=== PATIENT | male | born 1970 | race African-American/Black ===

== ENCOUNTER 2016-03-16 09:30 | Day surgery (SDC) ==
[~2016-03-16 09:30] MED LIST: SENSORCAINE-MPF 0.5%/EPI 1:200,000 ONE
[2016-03-16] MEDS ORDERED: TYLENOL ONE (09:36)
[2016-03-16] MEDS ORDERED: BENADRYL ONE (09:36)
[2016-03-16] MEDS ORDERED: NS 250 ML ONE (09:36)
[2016-03-16 12:54] VITALS: BP 113/77
== END 2016-03-16 13:00 | disposition home or self-care (01) ==
LOC: OPS 09:30
PROVIDERS: ATTEND Internal Medicine Hematology & Oncology
DX: D64.81 Anemia due to antineoplastic chemotherapy (principal); T45.1X5A Adverse effect of antineoplastic and immunosuppressive drugs, initial encounter; C34.11 Malignant neoplasm of upper lobe, right bronchus or lung; C79.31 Secondary malignant neoplasm of brain; I87.1 Compression of vein; F17.200 Nicotine dependence, unspecified, uncomplicated; C78.1 Secondary malignant neoplasm of mediastinum; R63.4 Abnormal weight loss; R52 Pain, unspecified; R11.2 Nausea with vomiting, unspecified; Z41.8 Encounter for other procedures for purposes other than remedying health state; R13.10 Dysphagia, unspecified; R68.83 Chills (without fever); R42 Dizziness and giddiness; R59.0 Localized enlarged lymph nodes; E53.8 Deficiency of other specified B group vitamins; Z79.899 Other long term (current) drug therapy
CPT/HCPCS: 36430; 86850; 86900; 86901; 86920; J7050; P9016; S0020

== ENCOUNTER 2016-05-24 10:55 | Day surgery (SDC) ==
[2016-05-24 12:41] LABS: INR 1.03; PROTIME 10.5 Seconds (9.2-11.7)
[2016-05-24] MEDS ORDERED: NS 250 ML ONE ×2 (12:44→13:29)
--- NOTE | 2016-05-24 14:45 | Diag Imaging Result Document ---
PROCEDURE NAME: CHEST-PORTABLE - 05/24/2016 SINGLE FRONTAL RADIOGRAPH OF THE CHEST: COMPARISON: 10/19/2015. FINDINGS: There is a stable calcified granuloma at the left lung base. There is linear scarring versus atelectasis in the right mid to upper lung zone. There is a newly placed left PICC line. The tip of the PICC line is to the left of midline. It is probably in the left brachiocephalic vein. Advancement is recommended for a more optimal position. Cardiac silhouette is grossly unremarkable. IMPRESSION: 1. Newly placed left PICC line tip projecting over the left side of the chest and probably in the left brachiocephalic vein. 2. Linear scarring versus atelectasis in the right upper lung zone.
== END 2016-05-24 14:50 | disposition home or self-care (01) ==
LOC: OPS 10:55
PROVIDERS: ATTEND Surgery
DX: C34.90 Malignant neoplasm of unspecified part of unspecified bronchus or lung (principal)
CPT/HCPCS: 36569; 71010; 85610; J7050

== ENCOUNTER 2016-05-27 09:17 | Emergency (ER) ==
[2016-05-27] MEDS ORDERED: XYLOCAINE-MPF 1% 5 ML ONE (10:38)
--- NOTE | 2016-05-27 10:44 | PROVIDER DOCUMENTATION ---
HPI-Rash/Wound/ReCheck - General Source: patient - History of Present Illness-Dermatology Location: reports: none Quality: reports: none Onset/Duration: reports: 4 days ago Timing: reports: still present Identifiable cause?: No Similar Symptoms Previously?: No Recently seen or treated by another doctor?: No <Nella Aceves - Last Filed: 05/27/16 10:57> <Trent Machuca - Last Filed: 05/27/16 10:59> - General Chief Complaint: Post Op Complaint Stated Complaint: PICC LINE BLEEDING Time Seen by Provider: 05/27/16 09:50 Allergies/Adverse Reactions: Allergies Allergy/AdvReac Type Severity Reaction Status Date / Time No Known Allergies Allergy Verified 05/03/14 12:23 Home Medications: Home Medication List Medication Instructions Recorded Confirmed Last Taken Type Hydrocodone/APAP 10 mg/325 mg 1 each PO Q4H PRN PRN #60 tablet 10/20/1512/08/15 Rx [[place]-10] Alprazolam [Xanax] 1 mg PO BID PRN 11/17/15 03/16/16 12/08/15 History Dexamethasone [Decadron] 4 mg PO BID 11/17/15 03/16/16 12/07/15 History - History of Present Illness-Dermatology Nature of Presenting Problem: Pt is a 45 yom who came to the ED with a cc of his pick line bleeding. Pt reports he had a new pick line placed in his left arm Saturday and since then it has been bleeding. Pt reports he also wants the old pick line removed. ( Nella Aceves) Review of Systems - Adult - REVIEW OF SYSTEMS - ADULT Constitutional: denies: chills, fever Eyes: denies: decreased vision, blurred vision Gastrointestinal: denies: diarrhea, nausea, vomiting Integumentary: reports: other (pick line in left arm bleeding). denies: itching , nail changes <Nella Aceves - Last Filed: 05/27/16 10:57> Past History - Adult - PAST MEDICAL HISTORY-ADULT Review of Records: reports: Old Records Reviewed, Nursing Assessment Review Major Childhood Illnesses: reports: denies history Cardiovascular: reports: denies history Respiratory: reports: cancer (lung) Gastrointestinal: reports: denies history Obstetrical/Gynecological: reports: denies history Genitourinary: reports: denies history Musculoskeletal: reports: denies history Neurological: reports: cancer/tumor Psychiatric: reports: denies history Endocrine/Immune: reports: denies history Other Conditions: reports: skin disorder ( cystic acne in the past), other - PRIOR SURGERIES/PROCEDURES Surgical/Procedure History: reports: none - IMMUNIZATION STATUS Childhood Immunizations: UTD Flu Vaccine: NUTD - FAMILY HISTORY Family History: reviewed, not pertinent <Nella Aceves - Last Filed: 05/27/16 10:57> Physical Exam-General - PHYSICAL EXAM-ADULT Initial Vital Signs Reviewed: Yes - CONSTITUTIONAL General Appearance: appears well, no apparent distress - EYES Eyes: PERRL/EOMI, pink conjunctivae - HEAD, EARS, NOSE, MOUTH & THROAT HENMT: normocephalic/atraumatic - NECK Neck: non-tender - RESPIRATORY Respiratory: chest non-tender, lungs clear - GASTROINTESTINAL (ABDOMEN) Abdominal Exam: normal bowel sounds, non tender - MUSCULOSKELETAL Back Exam: normal inspection Extremity: normal range of motion, other (left arm pick arm bleeding) - SKIN Integumentary: normal color, normal turgor - NEUROLOGIC Neurologic: grossly normal - PSYCHIATRIC Psych/Mental Status: normal mood/affect, normal thought content, normal thought process, oriented x 3 <Nella Aceves - Last Filed: 05/27/16 10:57> Progress <Nella Aceves - Last Filed: 05/27/16 10:57> <Trent Machuca - Last Filed: 05/27/16 10:59> - PLAN OF CARE/RESULTS Progress/Plan/Lab Results: Vital Signs - 24 hr 05/27/16 09:28 Temperature 97.5 F L Pulse Rate 112 H Respiratory 18 Rate Blood Pressure 109/78 O2 Sat by Pulse 98 Oximetry Orders Category Date Time Status Lidocaine 1% Pf [Xylocaine-Mpf 1%] 5 ml Med 05/27/16 10:38 Discontinued .ROUTE As Directed (Nella Aceves) Procedures - LACERATION/WOUND REPAIR/FB Left Upper Arm Wound Location: Other: pick line Wound Explored/Foreign Body: clean Irrigated with Saline?: No Anesthetic: 1%, Lidocaine/Xylocaine Wound Repaired with: Sutures Suture Size/Type: 3.0, Nylon Number of Sutures: 1 <Nella Aceves - Last Filed: 05/27/16 10:57> Departure - Departure Time of Disposition Order: 10:57 Certified Medical Emergency: Emergent <Nella Aceves - Last Filed: 05/27/16 10:57> - Departure Time of Disposition Order: 10:59 Certified Medical Emergency: Emergent <Trent Machuca - Last Filed: 05/27/16 10:59> - Departure DIAGNOSIS: Post-op bleeding Qualifiers: Surgical complication system/body Area: skin Procedure type: dermatologic Qualified Code(s): L76.21 - Postprocedural hemorrhage of skin and subcutaneous tissue following a dermatologic procedure Disposition: HOME 01 Condition: Stable Additional Instructions: ED Follow Up Instructions: You have been treated by a care provider in the Emergency Department. These instructions are being provided to you so you can have an understanding of how to care for yourself upon discharge. Upon discharge from the Emergency Department, you are responsible for making arrangements for follow-up care by a physician of your choice. Take all prescribed medications as directed. Return to the Emergency Department immediately for any new or worsening symptoms. You may call the Physician Referral phone number at [phone] to obtain a list of Physicians who are taking new patients. Referrals: None,PCP [Primary Care Provider] - Attestation - Scribe Verification/Attestation Scribe:: Nella Aceves Acting as Scribe for:: Trent Machuca Scribe documention review:: This chart was documented by a scribe and accurately reflects the service the provider performed and the decisions made by the provider. <Nella Aceves - Last Filed: 05/27/16 10:57> Physician Attestation
[2016-05-27 12:18] VITALS: BP 123/87
== END 2016-05-27 12:08 | disposition home or self-care (01) ==
LOC: ED 09:17
DX: L76.21 Postprocedural hemorrhage of skin and subcutaneous tissue following a dermatologic procedure (principal); Z79.899 Other long term (current) drug therapy; Z85.118 Personal history of other malignant neoplasm of bronchus and lung
CPT/HCPCS: 99282

== ENCOUNTER 2018-10-27 06:50 | Inpatient (IN) ==
[2018-10-27 07:59] LABS: INR 1.12; PROTIME 14.6 Seconds (11.0-16.0)
[2018-10-27 08:00] LABS: PTT 33.4 Seconds (22.3-41.8)
--- NOTE | 2018-10-27 09:37 | Diag Imaging Result Doc PS360 ---
EXAM: CHEST-2 VIEWS INDICATION: POST XRAY THORACENTESIS TECHNIQUE: 2 views COMPARISON: 10/23/2018 FINDINGS: The large pleural effusion on the right is significantly smaller status post thoracentesis. However, there has been development of a right-sided pneumothorax. It occupies about 15-20% of the right hemithorax. Despite the pneumothorax, the right lung is better aerated than the previous study due to the marked reduction in pleural fluid. The left apical lung mass is approximately stable. Cardiac silhouette is essentially stable. IMPRESSION: Right side hydropneumothorax status post thoracentesis as described. The patient will be monitored in-house and a repeat chest radiograph will be performed in four hours. Electronically signed by Shane Larios 10/27/2018 9:35 AM
[2018-10-27 10:07] LABS: BODY FLUID SOURCE PLEURAL FLUID
--- NOTE | 2018-10-27 10:07 | Diag Imaging Result Doc PS360 ---
EXAM: US THORACENTESIS W/IMAGE GUIDE INDICATION: right pleural effusion TECHNIQUE: COMPARISON: 04/21/2018 FINDINGS: Risks, benefits, and alternatives were discussed with the patient and informed consent was obtained. Patient was prepped and draped in sterile fashion and local anesthesia was achieved with 1% lidocaine solution. Using ultrasound guidance, a large bore catheter was inserted into the right pleural space and 1500 mL of straw-colored serous fluid was aspirated and sent for laboratory analysis. The catheter was withdrawn intact and hemostasis was achieved. A postprocedural chest radiograph showed a pneumothorax on the right occupying about 15-20% of the right hemithorax. The patient will be monitored in-house and a repeat chest radiograph will be performed in four hours to reevaluate. IMPRESSION: Technically successful ultrasound-guided right thoracentesis complicated by a right side pneumothorax. Electronically signed by Shane Larios 10/27/2018 10:05 AM
[2018-10-27 11:36] LABS: GLUCOSE BODY FLUID 66 mg/dL; LDH BODY FLUID 239 U/L; TOTAL PROT BODY FLUID 4.8 g/dL
--- NOTE | 2018-10-27 13:41 | Diag Imaging Result Doc PS360 ---
EXAM: CHEST-2 VIEWS INDICATION: 4 hours post thoracentesis TECHNIQUE: 2 views COMPARISON: 10/27/2018 FINDINGS: The post thoracentesis hydropneumothorax on the right has not changed appreciably since the previous study. It still occupies approximately 15-20% of the right hemithorax. However, there has been development of groundglass consolidation involving the right lower lobe and right middle lobe. This may be developing pulmonary edema. The chest is stable, otherwise. IMPRESSION: Approximately stable right-sided hydropneumothorax but development of consolidation at the right lower lung zone, which is worrisome for developing pulmonary edema. Electronically signed by Shane Larios 10/27/2018 1:38 PM
[2018-10-27] MEDS ORDERED: ZOFRAN IV PRN (14:29)
[2018-10-27] MEDS ORDERED: NORCO-7.5 PO PRN (14:29)
[2018-10-27] MEDS ORDERED: TYLENOL PO PRN (14:29)
[2018-10-27] MEDS ORDERED: XANAX PO PRN (14:36)
--- NOTE | 2018-10-27 14:57 | EKG Report ---
Test Performed on : 10/27/2018 2:43:03 PM Test Reason : chest pain Blood Pressure : / mmHG Vent. Rate : 107 BPM Atrial Rate : 107 BPM P-R Int : 138 ms QRS Dur : 082 ms QT Int : 336 ms P-R-T Axes : 085 -38 053 degrees QTc Int : 448 ms Sinus tachycardia. Left axis deviation Nonspecific T wave abnormality Abnormal ECG When compared with ECG of 07-JUN-2018 19:52, Nonspecific T wave abnormality no longer evident in Inferior leads Nonspecific T wave abnormality has replaced inverted T waves in Lateral leads Confirmed by Yoseph CHOUDHURY, MBeto Hicks ([id number]) on 10/28/2018 12:07:08 PM
[2018-10-27 15:30] LABS: BASO# 0.04 X1000 (0.0-0.2); BASO% 0.3 % (0.0-0.8); EOS# 0.03 X1000 (0.0-0.7); EOS% 0.2 % (0.0-10.0); HEMATOCRIT 47.7 % (42.0-52.0); HEMOGLOBIN 16.8 g/dL (14.0-18.0); IMM GRAN# 0.03 X1000 (0.0-0.04); IMM GRAN% 0.2 % (0.0-0.5); LYMPH# 1.42 X1000 (1.2-3.4); LYMPH% 9.2 % (20.5-51.1); MCH 32.9 PG (27-31); MCHC 35.2 g/dL (33-37); MCV 93.3 FL (81-99); MONO# 1.36 X1000 (0.11-0.59); MONO% 8.8 % (1.7-9.3); MPV 9.7 FL (7.4-10.4); NEUT% 81.3 % (42.2-75.2); PLT 363 X1000 (130-400); RBC 5.11 XMIL (4.7-6.1); RDW 15.9 % (11.5-14.5); WBC 15.48 X1000 (4.8-10.8)
--- NOTE | 2018-10-27 15:38 | HISTORY AND PHYSICAL ---
PRIMARY CARE PROVIDER: Piyush Rico MD PRIMARY ONCOLOGIST: Segundo Macias MD CHIEF COMPLAINT: Pneumothorax. REASON FOR ADMISSION: Pneumothorax. HISTORY OF PRESENT ILLNESS: Mr. Crispin Ba is a 48-year-old, male with a medical history of COPD, stage IV lung cancer that has metastasized to the brain. He is here today for diagnostic therapeutic thoracentesis on the right lung due to pleural effusion. Postprocedure complications includes pneumothorax so he is going to be admitted for [address] Macias's request along with a CT chest with contrast in the morning. Tachycardia but otherwise other vitals are stable. We will consult Dr. Rodas to evaluate for risk of needing a chest tube. PAST MEDICAL HISTORY: 1. COPD. 2. Stage IV lung cancer with metastasis to the brain diagnosed in 2016. He has been receiving radiation and chemotherapy. Apparently, he is on Opdivo. SURGICAL HISTORY: 1. Left lower back abscess excision and drainage. 2. Right lung tumor biopsy. 3. Right chest tube due to pneumothorax. SOCIAL HISTORY: Used to be a 1 to 2 pack per day smoker. Now he is a half pack per day smoker since age of 13. Used to smoke marijuana daily but now it is just 3 days a week. He used to drink half case of beer per day but now he is down to 3 beers about twice a week. He does not work any more. 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 He still has his girlfriend. FAMILY HISTORY: Mother had diabetes. Father is unknown. ALLERGIES: No known drug allergies. HOME MEDICATIONS: 1. Xanax 1 mg p.o. twice a day p.r.n. 2. [place] 10 mg 1 tab p.o. every 4 hours p.r.n. 3. I believe he is on Opdivo chemotherapy medication. REVIEW OF SYSTEMS: Fourteen point review of systems are complete and all were negative except for those mentioned above in the HPI. He states he has a chronic cough. Always feels like he has chronic congestion. Yellow to clear phlegm, it was yellow when he coughed it up at the bedside but denies chest pain, fever. PHYSICAL EXAMINATION: VITAL SIGNS: Temperature 98 degrees, heart rate 112, respiratory rate 22, blood pressure 118/84, O2 saturation 94% on room air. GENERAL: Mr. Crispin Ba is a 48-year-old, male, who is in no acute distress. He is able to answer questions appropriately. HEENT: Atraumatic, normocephalic. Pupils equal, round, reactive to light. Extraocular movements intact. Mucous membranes are dry. NECK: Trachea midline. CARDIOVASCULAR: S1, S2. Tachycardic rate and rhythm. No rubs, gallops, murmurs. No lower extremity edema. +2 dorsalis and radial pulses. Negative JVD or carotid bruits. PULMONARY: Clear to auscultation. Bilateral breath sounds. Mildly decreased in the right base. No accessory muscle use or work of breathing noted. He is tolerating room air. GASTROINTESTINAL: Soft, nontender, nondistended. Positive bowel sounds x4. EXTREMITIES: Moves all extremities equally. Full range of motion. NEUROLOGIC: A and O x3. Follows commands. Sensory is intact. SKIN: Warm, dry, intact. LABORATORY DATA: INR 1.12, PTT is 33.4. Pleural fluid glucose 66. Fluid total protein 4.8, fluid LDH 239 right pleural fluid. All other imaging and EKG is pending. At 7:04 a.m. he had a ultrasound-guided right thoracentesis, it caused about 15 to 20 percent right pneumothorax. There were able to drain around 1500 mL of straw-colored serous fluid which cultures were sent. At 09:19, chest x-ray showed the right side hydropneumothorax status post thoracentesis. A repeat chest x-ray 4 hours later showed approximately stable right-sided pneumothorax but development of consolidation of the right lower lung zone. Worrisome for some pulmonary edema. ASSESSMENT AND PLAN: 1. Right pleural pneumothorax, hydropneumothorax developed post right thoracentesis. Dr. Rodas was consulted to evaluate for need of chest tube placement. He has had a have a chest tube on the right side in the past due to a pneumothorax. Oxygen, pain medications needed. Monitoring of O2 saturation. Per Dr. Macias's request, he is going to have a CT of the chest with contrast in the morning. 2. Chronic obstructive pulmonary disease. No exacerbation. We will get ABGs. He can have nebulizers q.6 hours. No need for steroids at this time. 3. Stage IV lung cancer with brain metastasis followed by Dr. Macias on Opdivo. We will consult Dr. Macias as he is actually the one that got in touch with us. 4. Tachycardia could be due to the fluid volume loss of 1500 mL. We will monitor him on telemetry. 5. Anxiety. He has p.r.n. Xanax. 6. Tobacco abuse. Cessation discussed. 7. Marijuana use. Aware. 8. Beer weekly, twice per week. Also aware. Dictated by MYESHA Jones for Miles Silva MD cc: MYESHA Jones MD Pt examined in conjucntion with jo ann win, pt developed hydropneumothorax after a therapeutic thorancentesis; surgery will be consulted, may require a thoracostomy; will continue o2; and follow closely; lungs diminished at right base, agree with plan as otherwise described above [place] MTDD
[2018-10-27 15:44] LABS: AGAP 11; ALBUMIN 3.7 g/dL (3.5-5.0); ALKALINE PHOSPHATASE 70 U/L (32-122); BUN 10 mg/dL (8-22); CHLORIDE 99 mmol/L (98-107); COSMO 270; CREATININE 0.9 mg/dL (0.7-1.2); ESTIMATED GFR > 60; GLUCOSE 77 mg/dL (70-104); GOT 12 U/L (10-34); GPT 7 U/L (10-44); MAGNESIUM 1.9 mg/dL (1.5-2.7); POTASSIUM 4.3 mmol/L (3.5-5.1); SODIUM 136 mmol/L (136-145); TCO2 26 mmol/L (25-35); TOTAL BILIRUBIN 0.65 mg/dL (0.20-1.00); TOTAL PROTEIN 7.3 g/dL (6.3-8.3)
[2018-10-27] MEDS: ATROVENT NEB INH SCH ×2 (15:45→22:10)
[2018-10-27] MEDS: XOPENEX NEB INH SCH ×2 (15:45→22:10)
[2018-10-27 16:30] LABS: ALLEN TEST YES; BLOOD TYPE ARTERIAL; METHB 1.1 % (0.0-1.5); MODALITY CANNULA; O2(CT) 22.1 mL/dL (15.0-23.0); O2HB 92.7 % (95.0-99.0); PCO2(98.6) 27 mmHg (35-45); PO2(98.6) 90 mmHg (60-100); SAMPLE BLOOD; SAO2 98.2 % (95.0-100.0); THB 16.9 g/dL (11.5-17.4); pH(98.6) 7.49 (7.35-7.45)
[2018-10-27 18:10] LABS: URINE SOURCE CLEAN CATCH
[2018-10-27 18:20] LABS: BILIRUBIN URINE NEGATIVE (NEGATIVE); BLOOD URINE NEGATIVE (NEGATIVE); COLOR YELLOW; GLUCOSE URINE NEGATIVE (NEGATIVE); KETONE URINE NEGATIVE (NEGATIVE); LEUKOCYTES URINE NEGATIVE (NEGATIVE); NITRITE URINE NEGATIVE (NEGATIVE); PROTEIN URINE NEGATIVE (NEGATIVE); SP GRAVITY URINE 1.015; TURBIDITY URINE CLEAR (CLEAR); UR EPITHELIAL CELLS <10 /HPF (<10); URINE BACTERIA NEGATIVE /HPF; URINE RBC <10 /HPF (<10); URINE WBC <10 /HPF (<10); UROBILINOGEN URINE NORMAL (NORMAL)
[2018-10-27] MEDS: PULMICORT INH SCH (19:02)
--- NOTE | 2018-10-27 19:08 | GENERAL SURGERY CONSULTATION ---
DATE: 10/27/2018 REQUESTING PHYSICIAN: Hospitalist Service. REASON FOR CONSULTATION: Concerning hydropneumothorax. HISTORY OF PRESENT ILLNESS: Patient is a 48-year-old male with a history of COPD, stage 4 lung cancer with metastasis to the brain, who has been getting therapeutic thoracenteses on the right side due to recurrent pleural effusion. He did have what appears to be a post procedural hydropneumothorax, which he has been admitted by the hospitalist for evaluation. He does have a CT scan ordered in the morning. He is without any kind of issue right now. He is without shortness of breath or chest pain. I was asked to weigh an opinion. PAST MEDICAL HISTORY: Includes 1. COPD. 2. Stage 4 lung cancer with metastatic disease to the brain, who is actively receiving chemoradiation. PAST SURGICAL HISTORY: Incision and drainage of left back abscess, right lung tumor biopsy, right chest tube due to pneumothorax. SOCIAL HISTORY: Former smoker. Three beers a day as far as alcohol intake. FAMILY HISTORY: Positive for diabetes. ALLERGIES: None. HOME MEDICATIONS: Reviewed. REVIEW OF SYSTEMS: A full 14 organ systems were reviewed and are negative except for those specified in the HPI. PHYSICAL EXAMINATION: Vital Signs: Patient is currently afebrile. His vital signs are stable. General: No acute distress. Alert and interactive male, looks the stated age. HEENT: Normocephalic, atraumatic. Pupils equal, round, reactive to light. Mucous membranes moist. Oropharynx benign. Neck: Supple. Trachea midline. Cardiovascular: Regular rate and rhythm. Lungs: Grossly clear. No increased labor of breathing. Abdomen: Soft. Nontender. Not distended. Extremities: Moves all extremities. Neurologic: Grossly intact. Skin: No signs of jaundice. Vascular: All extremities perfused. LABORATORY: White blood cell count is 15, hematocrit 47, platelet count 363,000. INR is 1.12. ABG reviewed. CMP reviewed. IMAGING: Chest x-ray reviewed and discussed with Dr. Hadley. ASSESSMENT AND PLAN: A 48-year-old gentleman with metastatic lung cancer, now with right hydropneumothorax. 1. Metastatic lung cancer. At this time he is continuing treatment per Dr. Macias. Will defer to him. 2. Chronic obstructive pulmonary disease. At this time will defer to the hospitalist. He does not seem to be in any distress. 3. Right hydropneumothorax. At this time, likely related to a line. He has had multiple drainages. At this point will hold off on any kind of chest tube placement until we get the CT scan. He might benefit from a PleurX catheter if he is having repeated drainage procedures, but will make further recommendations once we have the CT scan done. I appreciate the consult. cc: Shadi Rodas MD
[2018-10-28] MEDS ORDERED: NORCO-10 PO PRN (00:03)
[2018-10-28] MEDS ORDERED: NORCO-7.5 PO PRN (00:15)
[2018-10-28] MEDS: XOPENEX NEB INH SCH ×4 (03:49→22:45)
[2018-10-28] MEDS: ATROVENT NEB INH SCH ×4 (03:49→22:45)
[2018-10-28 06:04] LABS: BASO# 0.05 X1000 (0.0-0.2); BASO% 0.5 % (0.0-0.8); EOS# 0.15 X1000 (0.0-0.7); EOS% 1.5 % (0.0-10.0); HEMATOCRIT 45.4 % (42.0-52.0); HEMOGLOBIN 15.8 g/dL (14.0-18.0); IMM GRAN# 0.02 X1000 (0.0-0.04); IMM GRAN% 0.2 % (0.0-0.5); LYMPH# 1.57 X1000 (1.2-3.4); LYMPH% 15.3 % (20.5-51.1); MCH 32.6 PG (27-31); MCHC 34.8 g/dL (33-37); MCV 93.8 FL (81-99); MONO# 1.06 X1000 (0.11-0.59); MONO% 10.3 % (1.7-9.3); MPV 9.5 FL (7.4-10.4); NEUT# 7.41 X1000 (1.4-6.5); NEUT% 72.2 % (42.2-75.2); PLT 326 X1000 (130-400); RBC 4.84 XMIL (4.7-6.1); RDW 15.7 % (11.5-14.5); WBC 10.26 X1000 (4.8-10.8)
[2018-10-28 06:08] LABS: INR 1.11; PROTIME 14.4 Seconds (11.0-16.0)
[2018-10-28 06:09] LABS: PTT 34.8 Seconds (22.3-41.8)
--- NOTE | 2018-10-28 06:13 | GENERAL SURGERY PROGRESS NOTE ---
DATE: 10/28/2018 SUBJECTIVE: Patient seems to be doing okay. He is not having any issues breathing. OBJECTIVE: Vital Signs: Patient is currently afebrile. His vital signs are stable. General: No acute distress. HEENT: Normocephalic, atraumatic. Pupils equal, round, reactive to light. Mucous membranes moist. Oropharynx benign. Neck: Supple. Trachea midline. Cardiovascular: Regular rate and rhythm. Lungs: Grossly clear. No increased labored breathing. Abdomen: Soft, nontender, nondistended. Extremities: Moves all extremities. Neurologic: Grossly intact. Skin: No signs of jaundice. Vascular: All extremities are perfused. LABORATORY DATA: None this morning as of yet. ASSESSMENT AND PLAN: A 48-year-old gentleman with stage IV lung cancer with recurrent effusions and hydropneumothorax. 1. Metastatic lung cancer. At this time, continue treatment per Dr. Macias. 2. Chronic obstructive pulmonary disease but we will defer to the Hospitalist. 3. Right hydropneumothorax. At this time, we will follow up a CT scan of the chest. May need to do like a PleurX catheter if he needs repeat drainage. We will continue to follow. cc: Shadi Rodas MD
[2018-10-28 06:22] LABS: AGAP 8; ALBUMIN 3.4 g/dL (3.5-5.0); ALKALINE PHOSPHATASE 62 U/L (32-122); BUN 9 mg/dL (8-22); CALCIUM 8.8 mg/dL (8.8-10.2); CHLORIDE 102 mmol/L (98-107); COSMO 275; CREATININE 0.9 mg/dL (0.7-1.2); ESTIMATED GFR > 60; GLUCOSE 101 mg/dL (70-104); GOT 10 U/L (10-34); GPT 6 U/L (10-44); MAGNESIUM 1.8 mg/dL (1.5-2.7); POTASSIUM 4.2 mmol/L (3.5-5.1); SODIUM 138 mmol/L (136-145); TCO2 28 mmol/L (25-35); TOTAL BILIRUBIN 0.83 mg/dL (0.20-1.00); TOTAL PROTEIN 6.7 g/dL (6.3-8.3)
--- NOTE | 2018-10-28 07:08 | EKG Report ---
Test Performed on : 10/28/2018 06:45:20 AM Test Reason : chest pain Blood Pressure : / mmHG Vent. Rate : 100 BPM Atrial Rate : 100 BPM P-R Int : 140 ms QRS Dur : 086 ms QT Int : 360 ms P-R-T Axes : 082 026 014 degrees QTc Int : 464 ms Normal sinus rhythm. Nonspecific T wave abnormality Abnormal ECG When compared with ECG of 27-OCT-2018 14:43, (Unconfirmed) Nonspecific T wave abnormality now evident in Inferior leads Confirmed by Cheryl Hameed MD ([id number]) on 10/28/2018 12:07:19 PM
--- NOTE | 2018-10-28 08:33 | Diag Imaging Result Doc PS360 ---
EXAM: CT THORAX W/CONTRAST 10/28/2018 HISTORY: right pneumothorax; effusion; cancer TECHNIQUE: This exam was performed using automated exposure control, adjustment of mA or kV according to patient size, and/or use of iterative reconstruction technique. COMMENT: The current study is compared with the previous examination of 06/07/2018. There is a hydropneumothorax on the right. The quantity of fluid has increased bilaterally compared to the previous study, despite the recent thoracentesis on the right. The pneumothorax was not present previously and occurred following the thoracentesis yesterday. There are nonspecific axillary nodes bilaterally which are similar in appearance to the previous study. There is infiltration of the fat in the mediastinum surrounding the aortic arch and alonso region similar in appearance to the previous study. Some of this may be result of radiation therapy. There are calcified nodes in the subcarina and left hilum. The left ventricle is enlarged. 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 This appearance was also present on the previous study. Some contrast opacification is present in the inferior vena cava which is presumably due to collateral flow, some of this coming from a large vein above the left hemidiaphragm. The regional skeleton is stable in appearance. There is a spiculated mass in the right upper lobe measuring 3 x 2.2 cm on image 41. At the time the previous study and measured 3.5 x 2 cm. The right middle lobe is somewhat contracted in appearance compared to the previous study. There is pleural thickening and puckering of the pleural surface which is accentuated by the presence of the pneumothorax. Ill-defined opacities in the inferior right upper lobe, upper right lower lobe, and right middle lobe may be related to lymphangitic spread of carcinoma. There is ill-defined opacity in the right lower lobe which has worsened anteriorly in comparison with the previous study. This may be due to pneumonia or compressive atelectasis. There is also some atelectasis in the posterior costophrenic sulcus region of the left lower lobe. Platelike opacities are seen in the left lower lobe and inferior lingula which are probably related to atelectasis. There is a nodule adjacent to the major fissure posteriorly in the left upper lobe on image 30 which has increased markedly in size since the previous study now measuring 2.2 cm in diameter compared to less than 10 mm previously. IMPRESSION: Hydropneumothorax on the right. Worsened metastatic disease in the right upper lobe. Worsened fibrosis, atelectasis, and/or lymphangitic spread of carcinoma in the right lung as described. Increased left pleural effusion. Other nonacute findings as described above. Electronically signed by Nacho Hadley 10/28/2018 8:31 AM
[2018-10-28] MEDS: PULMICORT INH SCH ×2 (09:06→22:45)
--- NOTE | 2018-10-28 12:02 | PROGRESS NOTE ---
DATE: 10/28/2018 SUBJECTIVE: Patient has no major complaints. OBJECTIVE: Vital signs: Blood pressure 115/83, heart rate 102, respiratory rate of 18, temperature 97.4 degrees, 92% on room air. Cardiovascular: Regular rate and rhythm. Pulmonary: Bilateral breath sounds, diminished at the bases. No rales or rhonchi. Gastrointestinal: Soft, nontender, nondistended. LABORATORY DATA: White count is 10, hemoglobin and hematocrit 15 and 45, platelets of 326,000. Basic was normal. Pleural fluid is most likely transudative. Cytology is still pending. Chest CT showed hydropneumothorax on the right, worsening metastatic disease in the right upper lobe, lymphangitis spread of carcinoma in the right lung. So overall, he is just kind of ill. PROBLEM LIST: Right hydropneumothorax. He seems to be doing okay. I do not get a sense that the hydropneumothorax has progressed and clinically he is well. We are going to follow. Dr. Rodas feels like he needs likely a PleurX catheter, whether this can be done as an outpatient or not. We will see. I will discuss with Dr. Rodas about observing him for 1 more day. cc: Miles Silva MD
[2018-10-29] MEDS: XOPENEX NEB INH SCH ×3 (03:53→15:59)
[2018-10-29] MEDS: ATROVENT NEB INH SCH ×3 (03:53→15:59)
--- NOTE | 2018-10-29 05:42 | GENERAL SURGERY PROGRESS NOTE ---
DATE: 10/29/2018 SUBJECTIVE: The patient seems to be doing okay. No major issues. Reviewed CT scan from yesterday. It looks like he probably needs a PleurX catheter. Discussed with him yesterday the risks, benefits and alternatives of the procedure. We obtained consent. OBJECTIVE: Vital Signs: The patient is currently afebrile. His vital signs are stable. General: No acute distress. HEENT: Normocephalic, atraumatic. Pupils are equal, round, and reactive to light. Mucous membranes are moist. Oropharynx benign. Neck: Supple. Trachea midline. Cardiovascular: Regular rate and rhythm. Lungs: Grossly clear, some decreased breath sounds on the right. Extremities: Moves all extremities. Neurologic: Grossly intact. Skin: No signs of jaundice. Vascular: All extremities perfused. LABORATORY: Laboratory reviewed from yesterday. Imaging and CT scan reviewed from yesterday and noted above. ASSESSMENT AND PLAN: A 48-year-old gentleman with metastatic lung cancer, now with hydropneumothorax. 1. Metastatic lung cancer. At this time, defer to Dr. Macias. 2. COPD. We will defer to the hospitalist. 3. Right hydropneumothorax. At this time, after reviewing the results of the CT scan of the chest we will plan on placement of a PleurX catheter today. Again, yesterday we discussed with him the risks, benefits and alternatives of the procedure, risks including but not limited to bleeding, infection, risk of anesthesia, risk of injuring lung or surrounding tissue, risk of incorrect placement discussed, all questions answered. cc: Shadi Rodas MD
[2018-10-29 05:43] LABS: BASO# 0.03 X1000 (0.0-0.2); BASO% 0.3 % (0.0-0.8); EOS% 1.9 % (0.0-10.0); HEMATOCRIT 41.1 % (42.0-52.0); HEMOGLOBIN 14.4 g/dL (14.0-18.0); IMM GRAN# 0.02 X1000 (0.0-0.04); IMM GRAN% 0.2 % (0.0-0.5); LYMPH# 1.25 X1000 (1.2-3.4); LYMPH% 11.7 % (20.5-51.1); MCV 94.1 FL (81-99); MONO% 10.3 % (1.7-9.3); MPV 9.3 FL (7.4-10.4); NEUT# 8.11 X1000 (1.4-6.5); NEUT% 75.6 % (42.2-75.2); PLT 309 X1000 (130-400); RBC 4.37 XMIL (4.7-6.1); RDW 15.6 % (11.5-14.5); WBC 10.71 X1000 (4.8-10.8)
[2018-10-29 06:02] LABS: AGAP 10; BUN 9 mg/dL (8-22); CALCIUM 8.7 mg/dL (8.8-10.2); CHLORIDE 103 mmol/L (98-107); COSMO 272; CREATININE 0.8 mg/dL (0.7-1.2); ESTIMATED GFR > 60; GLUCOSE 82 mg/dL (70-104); POTASSIUM 3.7 mmol/L (3.5-5.1); SODIUM 137 mmol/L (136-145); TCO2 24 mmol/L (25-35)
--- NOTE | 2018-10-29 06:54 | Diag Imaging Result Doc PS360 ---
CHEST-PORTABLE - 10/29/2018 INDICATION: hydropneumothorax COMPARISON: 10/27/2018 FINDINGS: There appears to have been resolution of the pneumothorax on the right side. There is a stable small right basilar pleural effusion. There are bilateral pulmonary nodules similar to prior. There is decrease in the infiltrate at the right lung base. Heart size remains normal. IMPRESSION: Improvement from prior. Resolution of the right basilar pneumothorax. Electronically signed by Espinoza Pedraza 10/29/2018 6:52 AM
[2018-10-29] MEDS ORDERED: DIPRIVAN 1% ONE (09:14)
[2018-10-29] MEDS: PULMICORT INH SCH (09:38)
[2018-10-29] MEDS ORDERED: SUFENTA ONE (10:01)
[2018-10-29] MEDS ORDERED: XYLOCAINE 1%/EPI 1:100,000 ONE (10:09)
[2018-10-29] MEDS ORDERED: KEFZOL 1 GM/D5W 1 GM/50 ML IVPB ONE (10:21)
[2018-10-29] MEDS ORDERED: NORCO-10 ONE (11:32)
--- NOTE | 2018-10-29 11:47 | OPERATIVE NOTE ---
PROCEDURE DATE: 10/29/2018 PREOPERATIVE DIAGNOSIS: Recurrent right malignant pleural effusion. POSTOPERATIVE DIAGNOSIS: Recurrent right malignant pleural effusion. PROCEDURE: Fluoro guided right PleurX catheter placement. SURGEON: Shadi Rodas MD. STAFF INTERPRETER: None. ANESTHESIA: General endotracheal. FINDINGS: Fluoro showed the catheter in good position at completion of the case with drainage of over 700, and still continuously draining fluid. COMPLICATIONS: None at time of dictation. EBL: 5 mL. SPECIMEN REMOVED: Fluid. BRIEF HISTORY: A 48-year-old male with metastatic lung cancer. He had a recurrent pleural effusion on the right. It was felt that he would benefit from PleurX catheter. The risks, benefits, and alternatives for placement were discussed. All questions answered. DESCRIPTION OF PROCEDURE: After informed consent was obtained, patient was brought to the operative theatre, transferred to the operative table, and placed in the supine position. General endotracheal anesthesia was then performed without complication. A formal time-out was then performed confirming correct patient, date and procedure. All were in agreement. At that time, attention was given to the right chest. We prepped and draped this area in a sterile fashion. After the time-out, we used local anesthetic to anesthetize the fifth intercostal space in the anterior axillary line. We made a small stab incision, directed the needle to the area. We initially got a small amount of air. We placed the dilator in the area, and placed a wire. Given the lack of fluid coming out, I brought the C-arm for the wire into the chest cavity. We then created a tunneling from the right chest wall and tunneled the catheter from the right chest wall to the right insertion site. Using Seldinger technique, we dilated up the tract to place the catheter in. We confirmed under fluoro that the catheter was in and connected to suction. It drained a significant amount. We secured everything with 3-0 Vicryl and a sterile dressing. The patient tolerated the procedure well and was transferred back. cc: Shadi Rodas MD
[2018-10-29 17:19] VITALS: BP 113/80
--- NOTE | 2018-10-30 00:55 | DISCHARGE SUMMARY ---
ADMISSION DATE: 10/27/2018 DISCHARGE DATE: 10/29/2018 DISCHARGE DIAGNOSES: 1. Hydropneumothorax after a thoracentesis. 2. 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 BRIEFLY: This is a 48-year-old male. He came in for therapeutic and diagnostic thoracentesis as an outpatient, about 1.5 mL were removed. He did have a post procedure pneumothorax, about 15 to 20 percent, so he was placed in Observation. He has had multiple drainages before, so this may require PleurX catheter. CT scan was obtained which showed a hydropneumothorax, worsened metastatic disease to his right upper lobe, worsened fibrosis. He has mets to the liver, so decision was made to place a PleurX catheter, which was done per Dr. Rodas. Of note, his x-ray on the morning of showed almost complete resolution of his basilar pneumothorax without any intervention, but because of his issues with recurrent pleural effusions, the PleurX will be able to stay in and then potentially help reduce the fluid as an outpatient. DISCHARGE CONDITION: Stable. DISCHARGE MEDICATIONS: Xanax 0.25 b.i.d. p.r.n. anxiety and [place] 10 p.r.n. pain. DISCHARGE INSTRUCTIONS: He is to follow with Dr. Macias and Dr. Rodas who will continue to monitor. cc: Miles Silva MD
--- NOTE | 2018-10-30 08:39 | HEMO/ONC CONSULTATION ---
DATE: 10/28/2018 ADMITTING PHYSICIAN: Dr. Silva. REQUESTING PHYSICIAN: Dr. Silva. We appreciate this consult. CHIEF COMPLAINT: Stage IV lung cancer. HISTORY OF PRESENT ILLNESS: Mr. Crispin Ba is a pleasant 48-year-old male, well known to Dr. Macias with a history of non-small cell lung cancer stage IV. The patient has been on Opdivo recently. He underwent CT of the chest in August on the , which revealed right upper lobe mass debility with worsening left upper lobe nodule. The patient was found to have a large right lung pleural effusion and underwent diagnostic therapeutic thoracentesis, which resulted in a hydro pneumothorax. The patient was admitted for PleurX placement. We are consulted as the patient is well known to us. PAST MEDICAL HISTORY: 1. COPD. 2. Stage IV non-small cell lung cancer. PAST SURGICAL HISTORY: 1. Right lung tumor biopsy. 2. Right chest tube placement. 3. Left lower back abscess excision and drainage. SOCIAL HISTORY: The patient currently smokes 1/2 pack cigarettes daily. He has a history of smoking 2 packs per day. The patient continues to smoke marijuana daily. He has a history of drinking a half case of beer daily, but drinks approximately 3 beers daily now. FAMILY HISTORY: Negative for any hematologic or oncologic disease. MEDICATIONS ON ADMISSION: 1. Xanax. 2. [place]. 3. Opdivo. ALLERGIES: The patient has no known drug allergies. REVIEW OF SYSTEMS: A 14 point review of systems was obtained and is negative, except for mentioned in HPI. PHYSICAL EXAM: General: Mr. Ba is a 48-year-old male lying supine in bed in no immediate distress. Vital Signs: Temperature 97.7 degrees, blood pressure 112/78, heart rate 104, respirations 20, O2 saturation 97% on 3 L nasal cannula O2. HEENT: Normocephalic, atraumatic. Mucous membranes are pink and moist. Sclerae is anicteric. Extraocular movements intact. Neck: Supple. Lungs: With decreased breath sounds on the right. Chest expansion is equal bilaterally. CV: S1, S2 is heard. No murmurs, rubs or gallops. Abdomen: Nondistended. Extremities: No clubbing, cyanosis, or edema. Dermatologic: No rashes, bruises or lesions. Neurologic: The patient is awake, alert, and oriented x3. Has no focal deficit. Gait is normal. LABORATORY DATA: Hemoglobin 15.8, hematocrit 45.4, white blood cell count is 10.26 platelets 326. Sodium 138, potassium 4.2, chloride 102, CO2 is 28. BUN 9, creatinine 0.9, glucose 101. LFTs are within normal limits. Blood and sputum cultures are pending. Pleural fluid pathology is pending. IMAGING STUDIES: Chest x-ray reveals a stable right hydro pneumothorax with questionable right lower lobe pulmonary edema. ASSESSMENT AND PLAN: 1. Right pleural pneumothorax with postprocedural hydro pneumothorax. The patient is awaiting Pleurx catheter placement. 2. Stage IV lung cancer, non-small cell lung cancer type. The patient is currently on Opdivo. The last CT of the chest in August on the revealed an increasing left upper lobe nodule with right upper lobe mass debility. 3. Chronic obstructive pulmonary disease without exacerbation. 4. Anxiety known. Would continue Xanax at this time. 5. Tobacco abuse. We will continue to encourage cessation. 6. Marijuana use known. We will follow along with you and make further recommendations pending outcomes again. The above reflects the history, exam, assessment and plan of Dr. Macias. Dictated by MYESHA Qureshi for Segundo Macias MD cc: MYESHA Qureshi MD
== END 2018-10-29 17:20 | disposition home or self-care (01) | DRG 200 ==
LOC: 4N 06:50 → OPS 06:50 → OBSVTOIN 14:08 → SUATTDRO 14:08
PROVIDERS: ATTEND Internal Medicine

== ENCOUNTER 2019-06-11 12:49 | Inpatient (IN) ==
[2019-06-11] MEDS ORDERED: NS 1,000 ML IV ONE (13:01)
[2019-06-11 13:19] LABS: ALLEN TEST YES; BE -2.6 mmoll (-3.0-3.0); BLOOD TYPE ARTERIAL; HCO3-(ACT) 22.4 mmoll (20.0-26.0); O2(CT) 12.5 mL/dL (15.0-23.0); PCO2(98.6) 35 mmHg (35-45); SAMPLE BLOOD; SAO2 78.9 % (95.0-100.0)
[2019-06-11 13:20] LABS: MODALITY ROOM AIR
[2019-06-11 13:25] LABS: PO2(98.6) 40 mmHg (60-100)
[2019-06-11 13:26] LABS: O2HB 74.4 % (95.0-99.0)
--- NOTE | 2019-06-11 13:30 | Diag Imaging Result Doc PS360 ---
EXAM: CHEST-1 VIEW HISTORY: SOB TECHNIQUE: Single view COMPARISON: 01/20/2019 FINDINGS: Interval increase in the size of the left upper lobe mass. Previously this measured approximately 3.5 cm and currently measures approximately 5.5 cm. There are [id number] sized bilateral pleural effusions with basilar atelectasis. There could be underlying infiltrates as well. The scarring in the right lung. No cardiomegaly. IMPRESSION: 1.Increase in the size of the left upper lobe mass 2.Small to moderate-sized pleural effusions with basilar atelectasis 3.Right lung fibrosis Electronically signed by Yusef Farias 06/11/2019 1:27 PM
--- NOTE | 2019-06-11 13:38 | EKG Report ---
Test Performed on : 06/11/2019 1:22:27 PM Test Reason : SOB Blood Pressure : / mmHG Vent. Rate : 112 BPM Atrial Rate : 112 BPM P-R Int : 134 ms QRS Dur : 084 ms QT Int : 352 ms P-R-T Axes : 073 009 024 degrees QTc Int : 480 ms Sinus tachycardia. Nonspecific T wave abnormality Abnormal ECG When compared with ECG of 28-OCT-2018 06:45, No significant change was found Unconfirmed Result
[2019-06-11 14:12] LABS: AGAP 14; ALB/GLOB RATIO 0.9; ALBUMIN 3.6 g/dL (3.5-5.0); ALKALINE PHOSPHATASE 115 U/L (32-122); BUN 6 mg/dL (8-22); CALCIUM 8.4 mg/dL (8.8-10.2); CHLORIDE 97 mmol/L (98-107); COSMO 259; CREATININE 0.7 mg/dL (0.7-1.2); ESTIMATED GFR > 60; GLUCOSE 83 mg/dL (70-104); GOT 21 U/L (10-34); GPT 9 U/L (10-44); MAGNESIUM 1.8 mg/dL (1.5-2.7); SODIUM 131 mmol/L (136-145); TCO2 20 mmol/L (25-35); TOTAL BILIRUBIN 0.45 mg/dL (0.20-1.00); TOTAL PROTEIN 7.4 g/dL (6.3-8.3)
[2019-06-11 14:16] LABS: BASO# 0.05 X1000 (0.0-0.2); BASO% 0.2 % (0.0-0.8); HEMATOCRIT 35.8 % (42.0-52.0); HEMOGLOBIN 12.2 g/dL (14.0-18.0); IMM GRAN% 0.8 % (0.0-0.5); LYMPH# 0.54 X1000 (1.2-3.4); LYMPH% 2.3 % (20.5-51.1); MCH 31.7 PG (27-31); MCHC 34.1 g/dL (33-37); MONO% 0.8 % (1.7-9.3); MPV 11.8 FL (7.4-10.4); NEUT# 22.88 X1000 (1.4-6.5); NEUT% 95.9 % (42.2-75.2); PLT 131 X1000 (130-400); RBC 3.85 XMIL (4.7-6.1); RDW 21.6 % (11.5-14.5); WBC 23.87 X1000 (4.8-10.8)
[2019-06-11 14:28] LABS: ANISOCYTOSIS 2+; BANDS 10 % (0-1); LYMPHS 2 % (21-51); MONO 1 % (1-9); NRBC 1 % (0-0); SEGS 87 % (42-75)
[2019-06-11 14:29] LABS: HYPOCHROM 1+; LARGE PLATELETS 1+; MICROCYTOSIS 1+; TARGET CELLS OCCASIONAL
--- NOTE | 2019-06-11 16:13 | Diag Imaging Result Doc PS360 ---
EXAM: CT HEAD W/WO CONTRAST INDICATION: AMS , BRAIN METS TECHNIQUE: This exam was performed using automated exposure control, adjustment of mA or kV according to patient size, and/or use of iterative reconstruction technique. 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 It is stable as compared to the more recent prior MRI there is also stable central brain atrophy as compared to the previous MRI. There is low-attenuation associated with the brachium pontis and cerebellum on the right that corresponds to the site of a prior metastatic focus. It is approximately stable as compared to the MRI. There are several small calcifications seen in the right frontal lobe, left occipital lobe, and left cerebellar hemisphere at the site of prior metastatic lesions that now appear to be quiescent. There is no definite acute infarct given the limited sensitivity of CT versus MRI. No new intracranial mass is appreciated. There is no abnormal intracranial enhancement appreciated by CT. There is no evidence of intracranial hemorrhage. There is a left mastoid air cell effusion and there is mild maxillary sinus mucosal thickening. Surrounding soft tissues and bony structures are essentially unremarkable, otherwise. 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 2.Chronic changes at the site of known prior metastatic lesions that exhibit no enhancement suggesting quiescence. No new metastatic lesions are appreciated. 3.No evidence of acute intracranial pathology, otherwise. Electronically signed by Shane Larios 06/11/2019 4:10 PM
--- NOTE | 2019-06-11 16:29 | Diag Imaging Result Doc PS360 ---
EXAM: CT ANGIOGRM PULMONARY ARTERIES INDICATION: SOB TECHNIQUE: This exam was performed using automated exposure control, adjustment of mA or kV according to patient size, and/or use of iterative reconstruction technique. Thin section axial images and 3-D MIPS were obtained. COMPARISON: 10/28/2018 FINDINGS: There is no evidence of pulmonary embolism. There is no evidence of aortic dissection or aneurysm. There is infiltration of mediastinal fat surrounding the aortic arch and subcarinal region. This is similar to the previous study and may be in part due to radiotherapy. There are calcified lymph nodes in the mediastinum indicating prior granulomatous disease. There is occlusion of the superior vena cava that is also seen on the previous study. There are associated dilated collateral varices seen in the subcutaneous soft tissues of the chest wall ventrally, stable. There is a spiculated mass in the right upper lobe measuring 4.3 x 2.2 cm axially on image 42 of series 4 (3.5 x 2.2 cm previously). There are also fibrotic changes surrounding the mass that are similar to the previous study. There are fibrotic changes and atelectasis at the right lung base. There is a 5.3 x 2.9 cm mass in the right upper lobe on image 30 of series 4 that has increased the potentially in size (previously 2.1 x 1.5 cm axially, remeasured). There is a large left effusion and left lower lobe atelectasis. There is a moderate-sized loculated effusion at the right lung base. There is no pneumothorax. Limited views of the upper abdomen are essentially unremarkable. There is nothing to suggest local bony metastatic disease. IMPRESSION: 1.Interval increase in sizes of bilateral upper lobe masses, particularly on the left. 2.Large left pleural effusion and moderate size loculated effusion at the right lung base. 3.Stable occlusion of the SVC. 4.No evidence of pulmonary embolism. Electronically signed by Shane Larios 06/11/2019 4:27 PM
--- NOTE | 2019-06-11 16:35 | PROVIDER DOCUMENTATION ---
This chart was entered by Jacquelyn Holliday Scribe, acting as scribe for Wil Peoples MD. HPI-Respiratory General - General Stated Complaint: LOW O2 SAT Time Seen by Provider: 06/11/19 12:52 Source: patient, EMS (first response) Allergies/Adverse Reactions: Patient Allergies Allergy/AdvReac Type Severity Reaction Status Date / Time No Known Allergies Allergy Verified 06/11/19 14:57 Home Medications: Home Medication List Medication Instructions Recorded Confirmed Last Taken Type Hydrocodone/APAP 10 mg/325 mg 1 each PO Q4H PRN PRN #60 tablet 10/20/15 06/11/19 01/18/19 08:00 Rx [[facility]-10] Alprazolam [Xanax] 1 mg PO BID PRN 11/17/15 06/11/19 01/18/19 08:00 History Furosemide 20 mg PO DAILY 06/11/19 06/11/19 Unknown History Potassium Chloride [Klor-Con] 20 meq PO DAILY 06/11/19 06/11/19 Unknown History - History of Present Illness-Resp Nature of Presenting Problem: 48 yobm presents to the ed via ems from [facility] due to low )2 sat of 84% on RA, fatigue, sob and cough. pt is a current cancer pt with lung ca that has mets to brain and chest. pt on exam is a/ox3 Quality of Pain: reports: none Severity in ED: reports: moderate Onset/Duration: reports: gradual Timing: reports: still present, intermittent Exposure: reports: unknown cause Cough Quality/Degree: reports: mild, productive cough, sputum (white) Episode Frequency: frequent episodes Current Respiratory Medication Therapy: Initiated see nurses note Modifying Factors: worse with: exertion, coughing Associated Symptoms: reports: cough, shortness of breath. denies: chest pain/soreness, dizziness, fever/chills, headache, hurts to breathe, wheezing Similar Symptoms Previously?: Yes Recently seen or treated by another doctor?: Yes (oncology) Review of Systems - Adult - REVIEW OF SYSTEMS - ADULT Constitutional: reports: see HPI, fatique. denies: chills, fever Eyes: reports: no symptoms reported Ears, Nose, Mouth & Throat: reports: no symptoms reported Cardiovascular: reports: see HPI, edema. denies: chest pain, palpitations Respiratory: reports: see HPI, cough, shortness of breath. denies: wheezing Gastrointestinal: denies: diarrhea, nausea, vomiting Genitourinary: reports: no symptoms reported Musculoskeletal: reports: no symptoms reported Integumentary: reports: no symptoms reported Neurological: denies: dizziness/vertigo, headache/migraines Psychiatric: reports: no symptoms reported Endocrine: reports: no symptoms reported Hematologic/Lymphatic: reports: no symptoms reported Allergic/Immunologic: reports: no symptoms reported All Other Systems: Reviewed and Negative Past History - Adult - PAST MEDICAL HISTORY-ADULT Review of Records: reports: Old Records Reviewed, Nursing Assessment Review, Medications Reviewed, Social history reviewed & non-contributory. Major Childhood Illnesses: reports: denies history Cardiovascular: reports: denies history Respiratory: reports: cancer (lung) Gastrointestinal: reports: denies history Genitourinary: reports: denies history Musculoskeletal: reports: denies history Neurological: reports: cancer/tumor Psychiatric: reports: denies history Endocrine/Immune: reports: immunosuppression (chivo through chemo now) Other Conditions: reports: skin disorder ( cystic acne in the past), other (port placed in rt thigh) - PRIOR SURGERIES/PROCEDURES Surgical/Procedure History: reports: none - IMMUNIZATION STATUS Childhood Immunizations: UTD Flu Vaccine: NUTD - FAMILY HISTORY Family History: reviewed, not pertinent - SOCIAL HISTORY Smoking: cigarettes, greater than 1 pack/day Provider spent 3-5 mins advising pt. on dangers of tobacco.: Discussed manners to quit use, and f/u contacts for add'l counseling. Substance Use: denies Living Situation: family Physical Exam-General - PHYSICAL EXAM-ADULT Initial Vital Signs Reviewed: Yes - CONSTITUTIONAL General Appearance: alert, no apparent distress - EYES Eyes: PERRL/EOMI, pink conjunctivae - HEAD, EARS, NOSE, MOUTH & THROAT HENMT: moist mucous membranes - NECK Neck: non-tender, full range of motion, supple, normal inspection - RESPIRATORY Respiratory: chest non-tender, decreased breath sounds (bilateral bases right greater then left) - CARDIOVASCULAR Cardiovascular: normal peripheral pulses, tachycardia (113) - CHEST (BREASTS) Chest/Breast: deferred - GASTROINTESTINAL (ABDOMEN) Abdominal Exam: normal bowel sounds, non tender, soft - GENITOURINARY Male Genitalia: deferred Rectal Exam: deferred Hemoccult Exam: deferred - LYMPHATIC Lymphatic: no adenopathy - MUSCULOSKELETAL Back Exam: no CVA tenderness, no vertebral tenderness Extremity: normal range of motion, normal capillary refill, pelvis stable, pedal edema, other (port covered in a bandage on rt thigh) - SKIN Integumentary: normal color, normal turgor, warm/dry - NEUROLOGIC Neurologic: grossly normal - PSYCHIATRIC Psych/Mental Status: normal mood/affect, normal thought content, normal thought process, oriented x 3 Progress - PLAN OF CARE/RESULTS Progress/Plan/Lab Results: Vital Signs - 8 hr 06/11/19 13:00 06/11/19 13:15 06/11/19 14:09 Temperature 98.4 F 97.9 F Pulse Rate 113 H 112 H Respiratory Rate 20 26 H Blood Pressure 88/74 97/75 O2 Sat by Pulse Oximetry 98 95 97 06/11/19 16:01 Temperature Pulse Rate 112 H Respiratory Rate 22 Blood Pressure 112/82 O2 Sat by Pulse Oximetry 96 Laboratory Results - last 24 hr 06/11/19 06/11/19 06/11/19 12:56 13:35 13:35 WBC RBC Hgb Hct MCV MCH MCHC RDW Std Deviation Plt Count MPV Immature Gran % (Auto) Neut % (Auto) Lymph % (Auto) Banner % (Auto) Eos % (Auto) Baso % (Auto) Immature Gran # (Auto) Neut # (Auto) Lymph # (Auto) Banner # (Auto) Eos # (Auto) Baso # (Auto) Segmented Neutrophils Band Neutrophils Lymphocytes Monocytes Nucleated RBCs Hypochromia Large Platelets Anisocytosis Microcytosis Macrocytosis Target Cells Specimen Type ARTERIAL Sample Site R RADIAL pH 7.40 pCO2 35 pO2 40 L* HCO3 22.4 Base Excess -2.6 Oxyhemoglobin 74.4 L* ABG O2 Sat (Calculated) 12.5 L ABG O2 Saturation 78.9 L ABG Carboxyhemoglobin 4.70 H ABG Methemoglobin 1.0 Rishi Test YES A-a O2 Difference 66.0 Total Hemoglobin 12.0 Lactate 1.20 Liter Flow 0.0 Blood Gas Modality ROOM AIR FiO2 % 21.0 Sodium 131 L Potassium 5.0 Chloride 97 L Carbon Dioxide 20 L Anion Gap 14 BUN 6 L Creatinine 0.7 Estimated GFR/1.73 m2 > 60 BUN/Creatinine Ratio 9 Glucose 83 Calculated Osmolality 259 Calcium 8.4 L Magnesium 1.8 Total Bilirubin 0.45 AST 21 ALT 9 L Alkaline Phosphatase 115 Troponin T High Sens [id number]-[id number] Pept Total Protein 7.4 Albumin 3.6 Globulin 3.8 Albumin/Globulin Ratio 0.9 Plasma Lactate 2.2 06/11/19 06/11/19 06/11/19 13:35 13:35 13:35 WBC 23.87 H RBC 3.85 L Hgb 12.2 L Hct 35.8 L MCV 93.0 MCH 31.7 H MCHC 34.1 RDW Std Deviation 21.6 H Plt Count 131 MPV 11.8 H Immature Gran % (Auto) 0.8 H Neut % (Auto) 95.9 H Lymph % (Auto) 2.3 L Banner % (Auto) 0.8 L Eos % (Auto) 0.0 Baso % (Auto) 0.2 Immature Gran # (Auto) 0.20 H Neut # (Auto) 22.88 H Lymph # (Auto) 0.54 L Banner # (Auto) 0.20 Eos # (Auto) 0.00 Baso # (Auto) 0.05 Segmented Neutrophils 87 H Band Neutrophils 10 H Lymphocytes 2 L Monocytes 1 Nucleated RBCs 1 H Hypochromia 1+ Large Platelets 1+ Anisocytosis 2+ Microcytosis 1+ Macrocytosis 2+ Target Cells OCCASIONAL Specimen Type Sample Site pH pCO2 pO2 HCO3 Base Excess Oxyhemoglobin ABG O2 Sat (Calculated) ABG O2 Saturation ABG Carboxyhemoglobin ABG Methemoglobin Rishi Test A-a O2 Difference Total Hemoglobin Lactate Liter Flow Blood Gas Modality FiO2 % Sodium Potassium Chloride Carbon Dioxide Anion Gap BUN Creatinine Estimated GFR/1.73 m2 BUN/Creatinine Ratio Glucose Calculated Osmolality Calcium Magnesium Total Bilirubin AST ALT Alkaline Phosphatase Troponin T High Sens < 6 Hkr-N-Nrjmzhwjufn Pept 2085 H Total Protein Albumin Globulin Albumin/Globulin Ratio Plasma Lactate Orders Category Date Time Status NEWS Score >or=5:Order NEWS Bundle S.O. NOW Care 06/11/19 13:02 Active Nursing- Obtain EKG ONCE Care 06/11/19 12:56 Active CHEST-1 VIEW [RAD] Stat Exams 06/11/19 12:[address] ANGIOGRM PULMONARY ARTERIES [CT] Stat Exams 06/11/19 14:[address] HEAD W/WO CONTRAST [CT] Stat Exams 06/11/19 14:36 Completed ABG [RESP] Routine Lab 06/11/19 12:56 Completed BLOOD CULTURE [BLDCUL] Stat Lab 06/11/19 14:45 Ordered BNP [PRO B-NATRIURETIC PEPTIDE] Stat Lab 06/11/19 13:35 Completed CBC WITH DIFF [HEME] Stat Lab 06/11/19 13:35 Completed COMPREHENSIVE METABOLIC PANEL [CHEM] Stat Lab 06/11/19 13:35 Completed LACTATE, PLASMA [CHEM] Stat Lab 06/11/19 13:35 Completed MAGNESIUM [CHEM] Stat Lab 06/11/19 13:35 Completed TROPONIN T HIGH SENSITIVITY Stat Lab 06/11/19 13:35 Completed 0.9% Sodium Chloride Inj [Ns] 1,000 ml Med 06/11/19 13:01 Discontinued IV 999 mls/hr EKG [EKG] Stat Ther 06/11/19 12:56 Draft Result Diagrams: 06/11/19 13:35 06/11/19 13:35 - REASSESSMENT Reassessment #1 Time Reassessed: 16:31 Status: improving (dr is at bedside speaking with pt about poc) - EKG 1 Time of EKG reading by physician:: 13:22 EKG Read and Signed by:: Wil Peoples EKG Interpretation (*Must complete 3 of following elements*): Abnormal Rate: 112 Rhythm: sinus tachycardia [place]: normal QRS: normal [place] Interval: normal Comments: nonspecific T wave abnormality - XRAY 1 XRAY: Bilateral XRAY Study: Chest Impression: See EMR Report (FINDINGS: Interval increase in the size of the left upper lobe mass. Previously this measured approximately 3.5 cm and currently measures approximately 5.5 cm. There are [id number] sized bilateral pleural effusions with basilar atelectasis. There could be underlying infiltra trinh as well. The scarring in the right lung. No cardiomegaly. IMPRESSION: 1.Increase in the size of the left upper lobe mass 2.Small to moderate-sized pleural effusions with basilar atelectasis 3.Right lung fibrosis Electronically signed by Yusef Farias 06/11/2019 1:27 PM) - CT/MRI 1 CT Study: Head Impression: See EMR Report (FINDINGS: There is extensive low-attenuation in the periventricular and subcortical white matter that is probably related to chemotherapy-induced leukoencephalopathy. It is stable as compared to the more recent prior MRI there is also stable central brain atrophy as compared to the previous MRI. There is low-attenuation associated with the brachium pontis and cerebellum on the right that corresponds to the site of a prior metastatic focus. It is approximately stable as compared to the MRI. There are several small calcifications seen in the right frontal lobe, left occipital lobe, and left cerebellar hemisphere at the site of prior metastatic lesions that now appear to be quiescent. There is no definite acute infarct given the limited sensitivity of CT versus MRI. No new intracranial mass is appreciated. There is no abnormal intracranial enhancement appreciated by CT. There is no evidence of intracranial hemorrhage. There is a left mastoid air cell effusion and there is mild maxillary sinus mucosal thickening. Surrounding soft tissues and bony structures are essentially unremarkable, otherwise. 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 2.Chronic changes at the site of known prior metastatic lesions that exhibit no enhancement suggesting quiescence. No new metastatic lesions are appreciated. 3.No evidence of acute intracranial pathology, otherwise. Electronically signed by Shane Larios 06/11/2019 4:10 PM) 2 CT Study: Angiogram Impression: See EMR Report (FINDINGS: There is no evidence of pulmonary embolism. There is no evidence of aortic dissection or aneurysm. There is infiltration of mediastinal fat surrounding the aortic arch and subcarinal region. This is similar to the previous study and may be in part due to radiotherapy. There are calcified lymph nodes in the mediastinum indicating prior granulomatous disease. There is occlusion of the superior vena cava that is also seen on the previous study. There are associated dilated collateral varices seen in the subcutaneous soft tissues of the chest wall ventrally, sta ble. There is a spiculated mass in the right upper lobe measuring 4.3 x 2.2 cm axially on image 42 of series 4 (3.5 x 2.2 cm previously). There are also fibrotic changes surrounding the mass that are similar to the previous study. There are fibrotic changes and atelectasis at the right lung base. There is a 5.3 x 2.9 cm mass in the right upper lobe on image 30 of series 4 that has increased the potentially in size (previously 2.1 x 1.5 cm axially, remeasured). There is a large left effusion and left lower lobe atelectasis. There is a moderate-sized loculated effusion at the right lung base. There is no pneumothorax. Limited views of the upper abdomen are essentially unremarkable. There is nothing to suggest local bony metastatic disease. IMPRESSION: 1.Interval increase in sizes of bilateral upper lobe masses, particularly on the left. 2.Large left pleural effusion and moderate size loculated effusion at the right lung base. 3.Stable occlusion of the SVC. 4.No evidence of pulmonary embolism. Electronically signed by Shane Larios 06/11/2019 4:27 PM) - CONSULTS/PCP/HOSPITALIST Notification #1 *Consult/PCP/Hospitalist*: hospitalist Time Discussed: 16:33 Consult Disposition: Admit Departure - Departure Date of Disposition Decision: 06/11/19 Time of Disposition Decision: 16:32 DIAGNOSIS: Tobacco use disorder Lung cancer Qualifiers: Laterality: unspecified laterality Lung location: unspecified part of lung Qualified Code(s): C34.90 - Malignant neoplasm of unspecified part of unspecified bronchus or lung Respiratory failure with hypoxia Qualifiers: Chronicity: chronic Qualified Code(s): J96.11 - Chronic respiratory failure with hypoxia Disposition: ADMITTED INPATIENT 09 Certified Medical Emergency: Emergent Condition: Serious Referrals and Follow-Ups: Piyush Rico MD [Primary Care Provider] - Discharge Education: Steps to Quit Smoking, [id number] - Critical Care Note This patient required my direct & personal management of CC.: No Attestation - Physician/ KODAK Attestation Patient care was provided by Advanced Practice Provider:: No The physician spent face to face time with patient:: Yes Advanced Practice Provider documentation review:: Supervising physician onsite and consulted in the evaluation and care of this patient. The physician did have a face to face encounter with the patient. This chart was documented by the indicated scribe, (Jacquelyn Holliday Scribe) and accurately reflects the services I performed and decisions made by me, Wil Peoples MD, as attested by the provider's signature.
[2019-06-11] MEDS ORDERED: ZOFRAN IV PRN (16:57)
[2019-06-11] MEDS ORDERED: TYLENOL PO PRN (17:00)
[2019-06-11] MEDS: PROTONIX IV SCH (17:00)
--- NOTE | 2019-06-11 17:47 | HISTORY AND PHYSICAL ---
CHIEF COMPLAINT: Shortness of breath. HISTORY OF PRESENT ILLNESS: This is a 48-year-old gentleman with a history of lung cancer with brain metastasis, currently receiving chemotherapy per Dr. Macias. He presented to the emergency room from Dr. Macias's office having O2 saturations as low as 84% on room air while he was receiving chemotherapy. The patient states that he has been tired, that he has had some generalized weakness and a chronic dry cough that has been present since before his cancer diagnosis. He denied any fevers or chills, any chest pain or palpitations. On arrival to the emergency room, his room air saturation was 94%. ABGs in the emergency room revealed a pH of 7.4 with a pCO2 of 35, PO2 of 40, and bicarb of 22. He was placed on 2 L after ABGs were obtained. PAST MEDICAL HISTORY: 1. Small cell lung cancer, adenocarcinoma with mediastinal and brain involvement. 2. Mediastinal adenopathy causing SVC syndrome. 3. Diabetes mellitus. 4. Hypertension. PAST SURGICAL HISTORY: Port placement. SOCIAL HISTORY: He smokes about a pack a day. He denies any alcohol or illicit drug use. ALLERGIES: No known drug allergies. HOME MEDICATIONS: A list will be obtained by the nursing staff and once verified, review and restart as appropriate. REVIEW OF SYSTEMS: Discussed with the patient with pertinent positives stated in the HPI. He denied any syncope or dizziness any chest pain or palpitations, any fevers, any chills, a productive cough, any nausea, vomiting, diarrhea, constipation, black or bloody vomitus or stools, hematuria, dysuria, frequency, or urgency. PHYSICAL EXAMINATION: GENERAL: This is a 48-year-old gentleman who is lying on the stretcher in the emergency room in no distress. VITAL SIGNS: Blood pressure is 112/82 with a heart rate of 103, respirations are 20-22, temperature is 97.9 degrees with O2 saturations 96% on 2 L nasal cannula. EYES: Pupils are equal, round, react to light. EOMs are intact. Sclerae anicteric. HEENT: Head is normocephalic, atraumatic. Mucous membranes are moist. NECK: Supple with trachea midline. No JVD. PULMONARY: Breath sounds are decreased throughout with rhonchi scattered throughout that do not clear to cough. They are decreased in the bases with right greater than left. Chest rises and falls symmetric to respiration. CARDIOVASCULAR: Regular rate and rhythm. He is tachycardic. S1 and S2 appreciated. He has no lower extremity edema. He reports calves are nontender bilateral with peripheral pulses palpable. GASTROINTESTINAL: Abdomen is soft, nontender, nondistended with bowel sounds in all 4 quadrants. EXTREMITIES: Port is noted to right thigh. Bandages intact. NEUROLOGIC: He is alert; he is oriented. LABORATORY DATA: WBC is 23.8 with hemoglobin 12.2, hematocrit 35.8, and platelets of 131,000. Sodium 131, potassium 5, BUN 6, creatinine 0.7 with a glucose of 83 skis me. ABGs on room air, pH is 7.4 with pCO2 35, PO2 40, bicarb of 22.4. Blood cultures are pending. IMAGING: CT of the head reveals evidence of chemotherapy related leukoencephalopathy that appear stable as compared to recent MRI. Chronic changes at the site of known prior metastatic lesions that exhibit no enhancement suggesting quiescence. No new metastatic lesions are appreciated. No evidence of intracranial pathology. Pulmonary arteriogram revealed interval increase in size of bilateral upper lobe masses particularly on the left, large left pleural effusion and moderate size loculated effusion at the right lung base. Stable occlusion of the SVC with no evidence of pulmonary embolism. ASSESSMENT: This is a 48-year-old male with 1. Acute hypoxemic respiratory failure. 2. Small-cell lung cancer, adenocarcinoma of the lungs with mediastinal and brain involvement. 3. Mediastinal adenopathy causing superior vena cava. 4. Left pleural effusion. 5. Right pleural effusion, moderate size. 6. Leukocytosis. 7. Hyponatremia. PLAN: 1. Continue supplemental oxygen. Monitor saturations. We will recheck blood gases in a.m. 2. Consult Pulmonology. 3. We will consult Dr. Macias. 4. Schedule a left thoracentesis ultrasound guided in Radiology. We will check a PT and PTT, INR in the morning. 5. We will identify his home medications and continue as appropriate. 6. Bronchodilators. 7. Acid suppression with Protonix. 8. DVT prophylaxis. We will use SCDs, holding off on any anticoagulation at present. 9. Further treatments pending hospital course. Dictated by MYESHA Bonds for Ramu Morfin MD cc: MYESHA Bonds MD
--- NOTE | 2019-06-11 17:52 | HISTORY AND PHYSICAL ---
ADDENDUM REPORT: The patient seen and examined by me [id number]. All the laboratory, vital signs and images were reviewed. The patient presented to the emergency department due to shortness of breath and hypoxemia. Actually, he was seen today at the oncologist's office and they sent this patient over here because of that. As per the patient, he has been having more shortness of breath for the past week and it has been getting worse. We did a pulmonary arteriogram that did not show any pulmonary embolism but showed a large left pleural effusion and moderate size loculated effusion on the right lung base. Unfortunately, also, there is an increase in size of bilateral upper lobe masses particularly on the left side. This has been explained to the patient. He has been placed on oxygen. He is slightly tachycardic. His oxygen is much better with 2 L of nasal cannula. I will ask the tunnel kiln operator to see the patient as well as the warehouse examiner-oncologist. At home he is on Xarelto, but as per the patient, he did not take Xarelto today and it looks like it is a low dose probably to prevent blood clots. My plan tomorrow is to get am ultrasound-guided thoracentesis done by the radiologist. This has been explained to the patient and he agree with that. Also, I discussed with him his resuscitation status and he wants to be full code. I agree with the rest of the nurse practitioner's assessment and plan. cc: Ramu Morfin MD
[2019-06-11] MEDS: DUONEB (A & A) INH SCH ×2 (19:21→23:29)
[2019-06-11] MEDS: NORCO-10 PO PRN (21:41)
[2019-06-11] MEDS: XANAX PO PRN (21:41)
[2019-06-12] MEDS: DUONEB (A & A) INH SCH ×7 (04:05→22:55)
[2019-06-12 06:23] LABS: BASO# 0.01 X1000 (0.0-0.2); HEMATOCRIT 33.7 % (42.0-52.0); HEMOGLOBIN 11.2 g/dL (14.0-18.0); IMM GRAN# 0.05 X1000 (0.0-0.04); IMM GRAN% 0.2 % (0.0-0.5); LYMPH# 0.41 X1000 (1.2-3.4); LYMPH% 1.7 % (20.5-51.1); MCH 31.4 PG (27-31); MCHC 33.2 g/dL (33-37); MCV 94.4 FL (81-99); MONO# 1.89 X1000 (0.11-0.59); MONO% 7.9 % (1.7-9.3); MPV 11.2 FL (7.4-10.4); NEUT# 21.48 X1000 (1.4-6.5); NEUT% 90.2 % (42.2-75.2); PLT 135 X1000 (130-400); RBC 3.57 XMIL (4.7-6.1); RDW 21.9 % (11.5-14.5); WBC 23.84 X1000 (4.8-10.8)
[2019-06-12 06:28] LABS: INR 1.12; PROTIME 14.6 Seconds (11.0-16.0); PTT 30.8 Seconds (22.3-41.8)
[2019-06-12 07:03] LABS: AGAP 11; ALB/GLOB RATIO 0.8; ALBUMIN 3.2 g/dL (3.5-5.0); ALKALINE PHOSPHATASE 116 U/L (32-122); BUN 11 mg/dL (8-22); CALCIUM 8.7 mg/dL (8.8-10.2); CHLORIDE 104 mmol/L (98-107); COSMO 275; CREATININE 0.7 mg/dL (0.7-1.2); ESTIMATED GFR > 60; GLUCOSE 138 mg/dL (70-104); GOT 11 U/L (10-34); GPT 5 U/L (10-44); POTASSIUM 5.1 mmol/L (3.5-5.1); SODIUM 137 mmol/L (136-145); TCO2 22 mmol/L (25-35); TOTAL BILIRUBIN 0.32 mg/dL (0.20-1.00); TOTAL PROTEIN 7.2 g/dL (6.3-8.3)
[2019-06-12] MEDS: NORCO-10 PO PRN (08:40)
--- NOTE | 2019-06-12 10:39 | Diag Imaging Result Doc PS360 ---
CHEST-2 VIEWS - 06/12/2019 INDICATION: Post thoracentesis COMPARISON: 06/11/2019 FINDINGS: There is no pneumothorax. There has been decrease in the left basilar pleural effusion. There is still a small to moderate residual pleural effusion. No pneumothorax. IMPRESSION: No complication. Electronically signed by Espinoza Pedraza 06/12/2019 10:37 AM
[2019-06-12] MEDS ORDERED: NS 250 ML IV ONE (11:03)
[2019-06-12] MEDS ORDERED: NS 500 ML IV ONE (11:04)
--- NOTE | 2019-06-12 12:52 | Diag Imaging Result Doc PS360 ---
US THORACENTESIS W/IMAGE GUIDE - 06/12/2019 INDICATION: left pleural effusion, lung cancer TECHNIQUE: The risks and benefits of the procedure were discussed with the patient. All questions were answered. Written and verbal informed consent was obtained. Overlying skin was prepped and draped in sterile fashion. Anesthesia was achieved with injection of 10 cc of 1% lidocaine. COMPARISON: None FINDINGS: The right side was accidentally performed instead of the left side. Ultrasound scanning of the right side demonstrated a moderate pleural effusion. 500 mL was successfully drained from the right side. IMPRESSION: Right-sided thoracentesis was performed instead of the left side. No complication. Electronically signed by Espinoza Pedraza 06/12/2019 12:49 PM
--- NOTE | 2019-06-12 13:25 | CONSULTATION ---
DATE OF CONSULTATION: 06/12/2019 ADDENDUM: To the previous dictation for Pulmonary consultation evaluation. CRITICAL CARE TIME: 35 minutes. cc: Leandra Hills MD
--- NOTE | 2019-06-12 13:28 | PROGRESS NOTE ---
DATE: 06/12/2019 SUBJECTIVE: The patient had a right thoracentesis done today and 500 mL of fluid has been removed, he also has a lot of fluid on the left side and probably will do a thoracentesis in the next following days. His blood pressure dropped after the procedure. I gave him some IV fluids and he recovered, he seems to be stable. I will put him on a diet. Continue with same management. OBJECTIVE: Vital Signs: Temperature 97.2 degrees, pulse 112, respiratory rate 16, blood pressure at 10:48 a.m. is 79/58, oxygen saturation 96% on nasal cannula. HEENT: Head normocephalic, no trauma, PERRLA. Neck: Supple. No JVD. No masses. Central trachea. Chest: Decreased breath sounds mostly on the left side with some crackles bilaterally. Abdomen: Soft, nontender, nondistended. Positive bowel sounds. Extremities: Port is noted on the right thigh, he is edematous. No clubbing, no cyanosis. Neurological: The patient is awake, alert, he is oriented. LABORATORY: WBC 23.8, hemoglobin 11.2, hematocrit 33.7, platelets 135,000. Sodium 137, potassium 5.1, chloride 104, bicarbonate 22, BUN 11, creatinine 0.7, glucose 138, calcium 8.7. AST 11, ALT 5, alkaline phosphatase 116, albumin 3.2. ASSESSMENT AND PLAN: 1. Acute hypoxemic respiratory failure likely due to pulmonary edema. He had a thoracentesis done today on the right side and hopefully we will do a thoracentesis on the left side during this hospitalization, we will continue with same management for now. 2. Hypotension, getting better after IV fluids. 3. Metastatic small cell lung cancer with mediastinal and brain involvement. 4. Mediastinal adenopathy causing superior vena cava. 5. Bilateral pleural effusion, status post right thoracentesis where 500 mL of fluid has been removed. 6. Leukocytosis, I do believe this is reactive. I do not think he has a pneumonia. No fever. 7. Hyponatremia, resolved after getting some fluids. cc: Ramu Morfin MD
--- NOTE | 2019-06-12 13:37 | PROGRESS NOTE ---
DATE: 06/12/2019 REFERRING PHYSICIAN: Dr. Valderrama. CHIEF COMPLAINT: Evaluation for shortness of breath and pleural effusion. HISTORY OF PRESENTING ILLNESS: A 48-year-old man with history of established lung cancer with metastasis to the brain, presented with shortness of breath. He was found to have significant pleural effusion and had ultrasound-guided thoracentesis today. 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 PAST SURGICAL HISTORY: Mediport placement. SOCIAL HISTORY: Active smoker. ALLERGIES: No known drug allergies. HOME MEDICATIONS: Reviewed and at home he is on hydrocodone, furosemide and Xanax. REVIEW OF SYSTEMS: As detailed in history of presenting illness, otherwise noncontributory home. Med allergies no known drug allergies. MEDICATIONS IN THE HOSPITAL: Medications in the hospital include Lasix, Xanax, Protonix. FAMILY HISTORY: Hypertension. PHYSICAL EXAMINATION: Vital Signs: Noted. He is currently 96% on Venturi mask. General: On physical examination, the patient is lethargic and cannot sleep, noted to have sleep apnea. Head and neck exam: Head and neck examined and trachea midline. Chest: Exam revealed reduced entry, mainly to the left side. Cardiac Exam: S1, S2. Abdomen: Nontender. Extremities: +1 pedal edema. Neurologic Exam: Lethargic. LABS/INVESTIGATIONS: WBC 23.84, hemoglobin 12.2, CO2 is 22. I am going to add Levaquin empiric. ABG seen with pH 7.4, pCO2 35, PO2 40%, and this is on room air. He is currently on oxygen supplementation, and I added BiPAP as needed. Thoracentesis was done with ultrasound guidance by the Radiology Department, and they pulled out 0.5 L. Chest x-ray and pulmonary arteriogram also seen with SVC syndrome, but no PE and lung masses. ASSESSMENT AND PLAN: A 48-year-old man with past history of lung cancer: 1. Metastatic lung cancer. 2. Pleural effusion and superior vena cava syndrome. 3. Pulmonary embolus is ruled out. 4. Sepsis and pneumonia is possible. 5. I started antibiotics. 6. I started BiPAP as needed. Thank you for the courtesy of this consultation. Critical care time 35 minutes cc: Leandra Hills MD [facility]
--- NOTE | 2019-06-12 14:03 | HEMO/ONC CONSULTATION ---
DATE: 06/12/2019 ADMITTING PHYSICIAN: Dr. Valderrama. REQUESTING PHYSICIAN: Dr. Valderrama. We appreciate this consult. CHIEF COMPLAINT: Non-small cell lung cancer. HISTORY OF PRESENT ILLNESS: Mr. Crispin Ba is a 48-year-old male well known to Dr. Macias with a history of metastatic non-small cell lung cancer, PDL 1 positive, with recurrence currently on carboplatin and Gemzar. He is status post cycle 4, dose 1 on 06/11/2019. The patient was noted to be somewhat somnolent with low oxygen saturation down to 84% on room air while receiving chemotherapy on the day of admission. The patient reported fatigue, as well as a chronic dry cough. He had no fevers or chills. No chest pain or palpitations. The patient was sent to the emergency department as his oxygen saturation did not improve. ABGs in the emergency department revealed a pH of 7.4 with pCO2 of 35, PO2 of 40, and bicarbonate of 22. The patient was placed on 2 L nasal cannula O2 and was admitted secondary to acute hypoxemic respiratory failure. PAST MEDICAL HISTORY: 1. Non-small cell lung cancer, adenocarcinoma histology, with mediastinal and brain involvement. 2. 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 3. Diabetes mellitus type 2. 4. Hypertension. PAST SURGICAL HISTORY: Port placement. SOCIAL HISTORY: The patient smokes 1/2 pack cigarettes daily. He does not use alcohol or illicit drugs. MEDICATIONS ON ADMISSION: Medication reconciliation currently pending. ALLERGIES: The patient has no known drug allergies. REVIEW OF SYSTEMS: A 14 point review of systems was obtained and is negative, except for mentioned in HPI. PHYSICAL EXAMINATION: General: Mr. Ba is a cachectic 48-year-old male, lying supine in bed, somewhat dyspneic, but in no immediate distress. Vital Signs: Temperature 97.2 degrees, blood pressure 79/58, heart rate 119, respirations 18, O2 saturation is 90% on nasal cannula. HEENT: Normocephalic, atraumatic. Mucous membranes are slightly pale and moist. Sclerae anicteric. Extraocular movements intact. Respiratory: Respirations slightly labored, currently wearing Ventimask. CV: S1, S2 is positive, tachycardic. Abdomen: Nondistended. Extremities: With 2+ bilateral lower extremity edema. Dermatologic: No rashes, bruises or lesions. Neurologic: The patient is somnolent, oriented x2. He has no focal deficit. LABORATORY DATA: Hemoglobin is 11.2, hematocrit 33.7, white blood cell count is 23.84, platelets 135. Sodium 137, potassium 5.1, chloride 104, CO2 is 22. BUN 11, creatinine 0.7 and glucose is 138. LFTs are within normal limits. IMAGING STUDIES: CT of the head reveals no acute abnormality with chemo-related leukoencephalopathy and chronic changes from prior metastatic sites with no new sites. Chest x- ray on 06/10 reveals an increase in lung mass size with small to moderate pleural effusions and basilar atelectasis, as well as right lung fibrosis. Chest x-ray on 06/11 reveals a decrease in left basilar effusion and no pneumothorax. Pulmonary angiography reveals an increase in bilateral masses with pleural effusions as stated above and stable SVC occlusion. No pulmonary embolism is noted. ASSESSMENT AND PLAN: 1. Metastatic non-small cell lung cancer PDL 1 positive recurrent, now on carboplatin and Gemzar, status post cycle 4 day 1 on 06/11/2019. Cycle 4 day 8 is due on 06/18/2019. We will hold further chemotherapy until the patient's acute illness improves. 2. Acute hypoxemic respiratory failure, status post left thoracentesis. Cytology is currently pending. Pulmonology is following. 3. Superior vena cava syndrome secondary to mediastinal adenopathy, stable at this time. 4. Hypotension. The patient is currently on intravenous fluids. 5. Bilateral lower extremity edema. The patient is currently on Lasix 20 mg daily. We will follow along with you and make further recommendations pending outcomes. The above reflects the history, exam, assessment and plan of Dr. Macias. Dictated by MYESHA Qureshi for Segundo Macias MD cc: MYESHA Qureshi MD
[2019-06-12] MEDS: LEVAQUIN 500 MG/D5W 500 MG/100 ML IVPB IV SCH (14:38)
[2019-06-12] MEDS: LASIX PO SCH (14:38)
[2019-06-12] MEDS: SODIUM CHLORIDE 0.9% INJ SCH (16:38)
[2019-06-12] MEDS: PROTONIX IV SCH (16:38)
[2019-06-12] MEDS ORDERED: ZOFRAN IV PRN (19:28)
[2019-06-13] MEDS: DUONEB (A & A) INH SCH ×5 (03:50→20:10)
[2019-06-13 06:44] LABS: HEMATOCRIT 29.7 % (42.0-52.0); HEMOGLOBIN 9.8 g/dL (14.0-18.0); MCH 32.5 PG (27-31); MCV 98.3 FL (81-99); MPV 11.5 FL (7.4-10.4); RBC 3.02 XMIL (4.7-6.1); RDW 22.5 % (11.5-14.5); WBC 18.27 X1000 (4.8-10.8)
--- NOTE | 2019-06-13 07:28 | Diag Imaging Result Doc PS360 ---
CHEST-PORTABLE - 06/13/2019 INDICATION: dyspnea COMPARISON: 06/12/2019 FINDINGS: There has been decrease in the left pleural effusion. Stable small right pleural effusion. Stable left upper lobe mass. Stable dense scarring right hilum and right upper lobe. No new infiltrates. IMPRESSION: Decrease in the left pleural effusion. Electronically signed by Espinoza Pedraza 06/13/2019 7:26 AM
[2019-06-13] MEDS: LASIX PO SCH (08:36)
[2019-06-13 09:13] LABS: AGAP 9; BUN 9 mg/dL (8-22); CALCIUM 8.8 mg/dL (8.8-10.2); CHLORIDE 101 mmol/L (98-107); COSMO 274; CREATININE 0.6 mg/dL (0.7-1.2); ESTIMATED GFR > 60; GLUCOSE 83 mg/dL (70-104); POTASSIUM 4.3 mmol/L (3.5-5.1); SODIUM 138 mmol/L (136-145); TCO2 28 mmol/L (25-35)
--- NOTE | 2019-06-13 13:11 | PROGRESS NOTE ---
DATE: 06/13/2019 SUBJECTIVE: This patient seems to be feeling a little bit better compared with yesterday. X-ray showed decrease in the left pleural effusion. He is still using a high amount of oxygen with a Venturi mask. The Pulmonary Department as well as the Hematology/Oncology Department is on board. OBJECTIVE: Vital Signs: Temperature is 97.6 degrees, pulse of 110, respiratory rate is 16, blood pressure is 92/61, oxygen saturation is 93% on a Venturi mask. HEENT: Head is normocephalic and atraumatic. PERRLA. Neck: Supple. No JVD. No masses. Central trachea. Chest: Decreased breath sounds mostly on the left side base, with crackles bilaterally. Abdomen: Soft, nontender, nondistended. Positive bowel sounds. Extremities: A port is noted on the right thigh. He is edematous. No clubbing. No cyanosis. Neurological: The patient is awake, alert, he is oriented. LABORATORY DATA: WBC is 18.2, hemoglobin is 9.8, hematocrit is 29.7, platelets 139,000. Sodium is 138, potassium is 4.3, chloride is 101, bicarbonate is 28, BUN is 9, creatinine is 0.6 glucose is 83 calcium is 8.8. ASSESSMENT AND PLAN: 1. Acute hypoxemic respiratory failure likely due to pulmonary edema. He had a thoracentesis done yesterday on the right side and 500 mL of fluid has been removed. Probably we need to do a thoracentesis on the left side in the near future. I will wait for the Pulmonary Department to give recommendations, but the pleural effusion seems to be better on the left side again today. 2. Hypotension. Seems to be stable, borderline low. 3. Metastatic small cell lung cancer with mediastinal and brain involvement. Aware. 4. Mediastinal adenopathy causing superior vena cava syndrome. Stable at this moment. 5. Bilateral pleural effusion status post right thoracentesis where 500 mL of fluid has been removed. 6. Leukocytosis. This patient could be having some pneumonia, but I do believe this is reactive. I will continue treating this patient with antibiotics as suggested by the Pulmonary Department. Probably he is septic. 7. Possible sepsis as above. 8. Hyponatremia. Resolved. cc: Ramu Morfin MD
--- NOTE | 2019-06-13 13:49 | PROGRESS NOTE ---
DATE: 06/13/2019 SUBJECTIVE: The patient is awake in bed, on a Ventimask. He is afebrile at this time. Vital signs noted. OBJECTIVE: Vital signs noted, afebrile this minute and he is on 50% Ventimask and saturating 96%.Head/Neck: The trachea midline. Chest: Exam reduced entry at the bases. Cardiac: S1, S2. Abdomen: Nontender. Lower Examination: +1 pedal edema. Neurologic: Awake and communicative. LABS: Creatinine 0.6. CMP noted. WBC is 18.27. CBC is noted. ASSESSMENT AND PLAN: 48-year-old man with known lung cancer and now has: 1. Acute hypoxic respiratory failure and pulmonary edema, pleural effusion, status post a thoracentesis. 2. Metastatic small-cell lung cancer to mediastinum and brain involvement. 3. Sleep apnea is witnessed during my presence and we ordered BiPAP and enforcing the order was discussed with nursing staff today and the charge nurse. cc: Leandra Hills MD
[2019-06-13] MEDS: LEVAQUIN 500 MG/D5W 500 MG/100 ML IVPB IV SCH (14:24)
[2019-06-13] MEDS: PROTONIX IV SCH (19:35)
[2019-06-13] MEDS: XANAX PO PRN (21:19)
[2019-06-14] MEDS: DUONEB (A & A) INH SCH ×7 (03:52→23:22)
[2019-06-14 06:45] LABS: BASO# 0.01 X1000 (0.0-0.2); BASO% 0.1 % (0.0-0.8); EOS% 0.8 % (0.0-10.0); HEMATOCRIT 29.1 % (42.0-52.0); HEMOGLOBIN 9.3 g/dL (14.0-18.0); IMM GRAN# 0.02 X1000 (0.0-0.04); IMM GRAN% 0.2 % (0.0-0.5); LYMPH# 0.76 X1000 (1.2-3.4); LYMPH% 6.4 % (20.5-51.1); MONO# 0.41 X1000 (0.11-0.59); MONO% 3.4 % (1.7-9.3); MPV 11.6 FL (7.4-10.4); NEUT% 89.1 % (42.2-75.2); PLT 132 X1000 (130-400); RDW 22.1 % (11.5-14.5)
[2019-06-14 07:14] LABS: AGAP 8; BUN 9 mg/dL (8-22); CALCIUM 8.8 mg/dL (8.8-10.2); CHLORIDE 97 mmol/L (98-107); COSMO 268; CREATININE 0.6 mg/dL (0.7-1.2); ESTIMATED GFR > 60; GLUCOSE 82 mg/dL (70-104); POTASSIUM 4.7 mmol/L (3.5-5.1); SODIUM 135 mmol/L (136-145); TCO2 30 mmol/L (25-35)
[2019-06-14] MEDS: LASIX PO SCH (09:06)
--- NOTE | 2019-06-14 09:57 | Diag Imaging Result Doc PS360 ---
CHEST-PORTABLE - 06/14/2019 INDICATION: Decreased SpO2, PNA, Cough COMPARISON: 06/13/2019 FINDINGS: Stable moderate left basilar pleural effusion. Stable trace right pleural effusion. Stable large left upper lobe mass. Stable scarring at the right hilum. IMPRESSION: No change from prior. Electronically signed by Espinoza Pedraza 06/14/2019 9:55 AM
--- NOTE | 2019-06-14 12:49 | PROGRESS NOTE ---
DATE: 06/14/2019 SUBJECTIVE: The patient seems to be about the same compared with yesterday. He is still hypoxemic. X-ray with no changes. Probably, tomorrow, we will ask for a left thoracentesis to see if that can help him out with his breathing. White blood cell count is improving. OBJECTIVE: Vital Signs: Temperature 98.6 degrees, pulse 122, respiratory rate 24, blood pressure 84/57, oxygen saturation 100% on a nonrebreathing mask. HEENT: Head normocephalic. No trauma. PERRLA. Neck: Supple. No JVD. No masses. Central trachea. Chest: Decreased breath sounds, mostly on the left side, with crackles bilaterally at the bases, probably some rhonchi. Abdomen: Soft, nontender, nondistended. On his chest, he has some vein distention in the upper part and also neck due to his superior vena cava syndrome. Extremities: A port is noted to the right thigh. He is edematous. No clubbing, no cyanosis. Neurological Examination: The patient is awake and alert. He is oriented. Laboratory: WBC 11.9, hemoglobin 9.3, hematocrit 29.1, platelets 132,000. Sodium 137, potassium 4.7, chloride 97, bicarbonate 30, BUN 9, creatinine 0.6, glucose 82, calcium 8.8. ASSESSMENT AND PLAN: 1. Acute hypoxemic respiratory failure due to pulmonary edema and possible pneumonia. He had a thoracentesis done a couple days ago on the right side and 500 mL of fluid has been removed. Tomorrow, we will ask to see if we can remove some fluid from the left side now. Pulmonary department on board. 2. Hypotension, seems to be stable. Kidney function stable. I will continue with the same management. 3. Metastatic small cell lung cancer with mediastinal and brain involvement. Aware. 4. Mediastinal adenopathy causing superior vena cava syndrome, stable at this moment. 5. Bilateral pleural effusion, status post right thoracentesis. 6. Leukocytosis, probably due to pneumonia and/or reactive. We will continue with the same treatment, antibiotics. White blood cell count is getting better. 7. Possible sepsis, as above. 8. Hyponatremia, stable. cc: Ramu Morfin MD
--- NOTE | 2019-06-14 14:22 | PROGRESS NOTE ---
DATE: 06/14/2019 SUBJECTIVE: The patient is awake in bed, on Venti mask. He feels okay. SUBJECTIVE: Vital signs: Seen. Head and neck: Examined. Neck: Trachea midline. Chest: Reduced entry bilaterally. Cardiac: Sinus. Abdomen: Slightly distended. Nontender. Extremities: Trace edema. Neurologic: Awake and communicative. LABS AND INVESTIGATIONS: CBC and CMP seen from today with creatinine 0.6. WBC is 11.9. Chest x- ray was reviewed with no changes from prior. ASSESSMENT AND PLAN: 1. 48-year-old man known to have lung cancer with metastasis to the brain and mediastinum. 2. Acute on chronic respiratory failure, compensated, pulmonary edema, pleural effusion status post thoracentesis. We are monitoring oxygen levels and titrating oxygen delivery accordingly, closely. 3. He has difficulty with BiPAP, and it has not been used for sleep apnea. That was witnessed during his admission. cc: Leandra Hills MD
[2019-06-14] MEDS: LEVAQUIN 500 MG/D5W 500 MG/100 ML IVPB IV SCH (14:30)
[2019-06-14] MEDS: PROTONIX IV SCH (21:18)
[2019-06-14] MEDS: SODIUM CHLORIDE 0.9% INJ SCH (21:18)
[2019-06-14] MEDS: XANAX PO PRN (21:25)
[2019-06-15] MEDS: DUONEB (A & A) INH SCH ×6 (03:43→23:40)
[2019-06-15 06:29] LABS: BASO# 0.02 X1000 (0.0-0.2); BASO% 0.2 % (0.0-0.8); EOS# 0.12 X1000 (0.0-0.7); HEMATOCRIT 29.2 % (42.0-52.0); HEMOGLOBIN 9.3 g/dL (14.0-18.0); IMM GRAN# 0.03 X1000 (0.0-0.04); IMM GRAN% 0.2 % (0.0-0.5); LYMPH# 0.71 X1000 (1.2-3.4); LYMPH% 5.9 % (20.5-51.1); MCHC 31.8 g/dL (33-37); MCV 97.3 FL (81-99); MONO# 0.29 X1000 (0.11-0.59); MONO% 2.4 % (1.7-9.3); NEUT# 10.89 X1000 (1.4-6.5); NEUT% 90.3 % (42.2-75.2); PLT 135 X1000 (130-400); RDW 21.7 % (11.5-14.5); WBC 12.06 X1000 (4.8-10.8)
[2019-06-15 06:39] LABS: AGAP 10; BUN 11 mg/dL (8-22); CALCIUM 8.5 mg/dL (8.8-10.2); CHLORIDE 97 mmol/L (98-107); COSMO 274; CREATININE 0.6 mg/dL (0.7-1.2); ESTIMATED GFR > 60; GLUCOSE 87 mg/dL (70-104); POTASSIUM 4.1 mmol/L (3.5-5.1); SODIUM 138 mmol/L (136-145); TCO2 31 mmol/L (25-35)
[2019-06-15 07:28] LABS: BANDS 14 % (0-1); LYMPHS 6 % (21-51); SEGS 80 % (42-75)
[2019-06-15 07:29] LABS: ANISOCYTOSIS 2+; HYPOCHROM 2+
--- NOTE | 2019-06-15 07:40 | Diag Imaging Result Doc PS360 ---
EXAM: CHEST-2 VIEWS INDICATION: hypoxia TECHNIQUE: 2 views COMPARISON: 06/14/2019 FINDINGS: Large left upper lobe mass is stable. There is stable scarring in the right perihilar region. The left pleural effusion appears smaller. However, this is probably positional. There is better aeration of the left lung base. No new consolidation is identified. Cardiac silhouette is stable. IMPRESSION: Decrease in prominence of the left pleural effusion that is probably positional and better aeration of the left lung base as compared to the previous study. Electronically signed by Shane Larios 06/15/2019 7:37 AM
--- NOTE | 2019-06-15 08:39 | Diag Imaging Result Doc PS360 ---
EXAM: CHEST-2 VIEWS 06/15/2019 HISTORY: POST U/S LEFT THORACENTESIS TECHNIQUE: Inspiratory expiratory chest COMMENT: The left pleural fluid collection has diminished since the previous study of this date at 0730. There is no evidence of pneumothorax. IMPRESSION: Improved left pleural fluid collection. Electronically signed by Nacho Hadley 06/15/2019 8:37 AM
--- NOTE | 2019-06-15 09:04 | Diag Imaging Result Doc PS360 ---
EXAM: US THORACENTESIS W/IMAGE GUIDE 06/15/2019 HISTORY: Left pleural effusion TECHNIQUE: Left ultrasound-guided thoracentesis COMMENT: The risks and benefits of the procedure including the possibility of pneumothorax, bleeding, infection, or reaction to lidocaine was discussed with the patient and he agreed to the procedure. Following sterile preparation of the skin posteriorly over the left chest and administration 1% lidocaine to the skin and deeper soft tissues the thoracentesis catheter was placed in the fluid previously demonstrated posteriorly in the left pleural space and subsequently 1 L of blood-tinged fluid was drained by syringe pump technique. There are no immediate complications and the patient tolerated the procedure well. IMPRESSION: Successful left thoracentesis. Electronically signed by Nacho Hadley 06/15/2019 9:01 AM
[2019-06-15] MEDS: LASIX PO SCH (09:09)
[2019-06-15 10:03] LABS: ALLEN TEST YES; BE 9.9 mmoll (-3.0-3.0); BLOOD TYPE ARTERIAL; HCO3-(ACT) 32.6 mmoll (20.0-26.0); METHB 1.4 % (0.0-1.5); O2(CT) 12.8 mL/dL (15.0-23.0); O2HB 95.5 % (95.0-99.0); PO2(98.6) 103 mmHg (60-100); SAMPLE BLOOD; SAO2 99.6 % (95.0-100.0); THB 9.4 g/dL (11.5-17.4); pH(98.6) 7.44 (7.35-7.45)
[2019-06-15 10:04] LABS: MODALITY NRB
[2019-06-15 10:07] LABS: PCO2(98.6) 52 mmHg (35-45)
[2019-06-15] MEDS: LEVAQUIN 500 MG/D5W 500 MG/100 ML IVPB IV SCH (13:33)
--- NOTE | 2019-06-15 13:53 | PROGRESS NOTE ---
DATE: 06/15/2019 SUBJECTIVE: The patient seems to be feeling better today. We did a left thoracentesis and a liter of blood-tinged fluid has been removed. I will get a new x-ray tomorrow. He is still getting oxygen through a nonrebreathing mask. He is still hypoxemic, but feeling better. Hopefully if his oxygen saturation is controlled with a nasal cannula, he can probably go home in the next 24 to 48 hours. I will request a new chest x-ray in the morning. OBJECTIVE: Vital Signs: Temperature 98.3 degrees, pulse 127, respiratory rate 21, blood pressure 90/69, oxygen saturation 97% on a nonrebreathing mask. HEENT: Head normocephalic, no trauma. PERRLA. Neck: Supple. No JVD. No masses. Central trachea. Chest: Decreased breath sounds mostly on the left side with some crackles at the bases bilaterally, probably some rhonchi. He has some vein distention in the upper part of the chest and neck due to his superior vena cava syndrome. Extremities: No changes. No clubbing, no cyanosis. Neurological examination: The patient is awake, alert. He is oriented. LABORATORY: WBC 12, hemoglobin 9.3, hematocrit 29.2, platelets 135. Sodium 138, potassium 4.1, chloride 97, bicarbonate 31. BUN 11, creatinine 0.6, glucose 87, calcium 8.5. ASSESSMENT AND PLAN: 1. Acute hypoxemic respiratory failure due to pulmonary edema and possible pneumonia. He had a thoracentesis last Saturday, and 500 mL of fluid has been removed. Today, we did a thoracentesis on the left side, and 1 liter of blood-tinged fluid has been removed. Pulmonary Department on board, as well as Hematology/Oncology Department. We will continue with same management. He is still hypoxemic and getting oxygen through a nonrebreathing mask. Once this is better controlled and he is able to tolerate a nasal cannula, likely he can go home. 2. Hypertension, seems to be stable. Kidney function stable. I will continue with same management. 3. Metastatic small cell lung cancer with mediastinal and brain involvement. Aware. 4. Mediastinal adenopathy causing superior vena cava syndrome, stable at this moment. 5. Bilateral pleural effusion, status post right thoracentesis where 500 mL of fluid has been removed, and today we did a left-sided thoracentesis with 1 liter of fluid removed. 6. Leukocytosis, likely a combination of pneumonia and/or reactive. Continue with same management. Continue with antibiotics. Blood cell count better compared with admission. 7. Possible sepsis as above. 8. Hyponatremia, stable. cc: Ramu Morfin MD
--- NOTE | 2019-06-15 14:36 | PROVIDER PROGRESS NOTE ---
Progress Note Dr. Hills Progress Note/Pulmonary and or critical care Subjective: The patient is lying in bed with no acute distress noted. He is lethargic, but arousable at this time. He denies any pain and states he is feeling better. He underwent a left thoracentesis with 1 L fluid aspirated this morning. He reports he is breathing better. He does have one episode of dry cough during my encounter. No family at the bedside. Input was appreciated from Dr. Valderrama and other teams on the case. Objective: Vital Signs: T 98.4 (no fever in last 24 hours), GA 124, RR 20, BP 85/62 and SaO2 95% on NRB 100%. Physical Examination: General: Lying in bed. No acute distress noted. HEENT: Normocephalic. Atraumatic. Trachea midline. Mucosa pink and moist. Oropharynx clear. PERRL. Chest: Even and unlabored. Symmetrical excursion. Diminished breathing sounds bibasilarly with occasional diffuse rhonchi bilaterally. CVS: Tachycardia. S1 and S2 appreciated. Abdomen: Soft. Non-distended. Non-tender. Normoactive bowel sounds in all 4 quadrants. Extremities: BLE pitting edema 1+. No cyanosis. Clubbing noted. Neuro: Lethargic, but arousable. Answer simple questions. Follow simple commands. Labs and Radiology: Laboratory Results 06/15/19 06/15/19 06/15/19 05:25 05:25 09:45 WBC 12.06 H RBC 3.00 L Hgb 9.3 L Hct 29.2 L MCV 97.3 MCH 31.0 MCHC 31.8 L RDW Std Deviation 21.7 H Plt Count 135 MPV 11.0 H Immature Gran % (Auto) 0.2 Neut % (Auto) 90.3 H Lymph % (Auto) 5.9 L [place] % (Auto) 2.4 Eos % (Auto) 1.0 Baso % (Auto) 0.2 Immature Gran # (Auto) 0.03 Neut # (Auto) 10.89 H Lymph # (Auto) 0.71 L [place] # (Auto) 0.29 Eos # (Auto) 0.12 Baso # (Auto) 0.02 Segmented Neutrophils 80 H Band Neutrophils 14 H Lymphocytes 6 L Hypochromia 2+ Anisocytosis 2+ Specimen Type ARTERIAL Sample Site R RADIAL pH 7.44 pCO2 52 H* pO2 103 H HCO3 32.6 H Base Excess 9.9 H Oxyhemoglobin 95.5 ABG O2 Sat (Calculated) 12.8 L ABG O2 Saturation 99.6 ABG Carboxyhemoglobin 2.60 H ABG Methemoglobin 1.4 Rishi Test YES A-a O2 Difference 545.0 Total Hemoglobin 9.4 L Lactate 1.10 Liter Flow 15.0 Blood Gas Modality NRB FiO2 % 100.0 Sodium 138 Potassium 4.1 Chloride 97 L Carbon Dioxide 31 Anion Gap 10 BUN 11 Creatinine 0.6 L Estimated GFR/1.73 m2 > 60 BUN/Creatinine Ratio 18 Glucose 87 Calculated Osmolality 274 Calcium 8.5 L Assessment: Acute hypoxemic respiratory failure. Metastatic small-cell lung cancer to mediastinum and brain. 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 Pulmonary edema with bilateral pleural effusions. s/p right thoracentesis on 06/12/19 with 500 ml fluid aspirated and left thoracentesis on 06/15/19 with 1000 ml fluid aspirated. CXR after thoracentesis showed improved left pleural fluid collection. Witnessed sleep apnea. Shock. No pressor required. Plan: Supplemental oxygen as needed. Patient did wear BiPAP last night. We titrated supplemental oxygen and BiPAP settings to the patients needs per clinical protocols. We will keep monitoring patients response closely. We check ABG at this time and will repeat ABG tomorrow morning. Continue prophylactic antibiotic Levaquin. Continue diuretic as tolerated. Continue bronchodilators. Continue GI and DVT prophylaxis.
[2019-06-15] MEDS: PROTONIX [NONFORMULARY] PO SCH (16:18)
[2019-06-15] MEDS: XANAX PO PRN (20:16)
[2019-06-16] MEDS: DUONEB (A & A) INH SCH ×6 (03:45→23:55)
[2019-06-16 05:13] LABS: ALLEN TEST YES; BE 11.2 mmoll (-3.0-3.0); BLOOD TYPE ARTERIAL; HCO3-(ACT) 33.7 mmoll (20.0-26.0); METHB 0.6 % (0.0-1.5); O2HB 96.4 % (95.0-99.0); PO2(98.6) 88 mmHg (60-100); SAMPLE BLOOD; THB 5.8 g/dL (11.5-17.4); pH(98.6) 7.41 (7.35-7.45)
[2019-06-16 05:16] LABS: PCO2(98.6) 58 mmHg (35-45)
[2019-06-16 05:17] LABS: MODALITY VENTIMASK
[2019-06-16 05:52] LABS: BASO# 0.03 X1000 (0.0-0.2); BASO% 0.3 % (0.0-0.8); EOS# 0.08 X1000 (0.0-0.7); EOS% 0.7 % (0.0-10.0); HEMATOCRIT 27.3 % (42.0-52.0); HEMOGLOBIN 8.7 g/dL (14.0-18.0); IMM GRAN# 0.03 X1000 (0.0-0.04); IMM GRAN% 0.3 % (0.0-0.5); LYMPH# 0.79 X1000 (1.2-3.4); LYMPH% 7.2 % (20.5-51.1); MCHC 31.9 g/dL (33-37); MCV 97.2 FL (81-99); MONO# 0.34 X1000 (0.11-0.59); MONO% 3.1 % (1.7-9.3); MPV 10.3 FL (7.4-10.4); NEUT# 9.69 X1000 (1.4-6.5); NEUT% 88.4 % (42.2-75.2); PLT 104 X1000 (130-400); RBC 2.81 XMIL (4.7-6.1); RDW 21.6 % (11.5-14.5); WBC 10.96 X1000 (4.8-10.8)
[2019-06-16 06:07] LABS: AGAP 9; BUN 13 mg/dL (8-22); CALCIUM 8.6 mg/dL (8.8-10.2); CHLORIDE 95 mmol/L (98-107); COSMO 273; CREATININE 0.6 mg/dL (0.7-1.2); ESTIMATED GFR > 60; GLUCOSE 90 mg/dL (70-104); POTASSIUM 4.3 mmol/L (3.5-5.1); SODIUM 137 mmol/L (136-145); TCO2 33 mmol/L (25-35)
--- NOTE | 2019-06-16 07:08 | Diag Imaging Result Doc PS360 ---
EXAM: CHEST-PORTABLE INDICATION: dyspnea TECHNIQUE: One view COMPARISON: 06/15/2019 FINDINGS: The left basilar pleural effusion has decreased further in size and there is better aeration of the left lung base. No new consolidation is identified. Cardiac silhouette is stable. IMPRESSION: Decrease in size of left pleural effusion with better aeration of the left lung base. Stable chest, otherwise. Electronically signed by Shane Larios 06/16/2019 7:05 AM
[2019-06-16] MEDS: LASIX PO SCH (08:17)
[2019-06-16] MEDS: PROTONIX [NONFORMULARY] PO SCH (08:17)
[2019-06-16] MEDS ORDERED: NORCO-10 PO PRN (10:21)
[2019-06-16] MEDS ORDERED: XANAX PO PRN (10:21)
--- NOTE | 2019-06-16 10:45 | PROGRESS NOTE ---
DATE: 06/16/2019 SUBJECTIVE: Patient reports feeling fine. He reports that he is ready to go home. He had a thoracentesis the day before yesterday and he is feeling fine today. OBJECTIVE: Vital Signs: Temperature 97.9 degrees, heart rate 119, respiratory rate 19, blood pressure 97/72, and O2 saturation 97% on Venturi mask at 50%. General: On examination, this is a chronically ill-looking, 48-year-old male, lying in bed, in no acute distress. HEENT: Head is normocephalic, atraumatic. Neck: No JVD noted. No carotid bruits. No lymphadenopathy. Cardiovascular: S1 and S2 heard. Tachycardic. No murmurs, gallops, or rubs noted. Respiratory: Decreased breath sounds globally, mostly in the left side, with some rhonchi and crackles as well. The patient has some vein distention in the upper part of the chest and neck due to see his superior vena cava syndrome. Extremities: No clubbing, cyanosis, or edema. Peripheral pulses present in both legs. Neurological: Patient is alert and oriented x3. Moves 4 extremities. LABORATORY DATA: White cell count 10.96, hemoglobin 8.7, hematocrit 27.3, platelets 104,000 with ABG that shows pH 7.41 with pCO2 of 58 PO2 of 88, and that was taken on Ventimask at 50% FiO2, and BMP that is unremarkable. ASSESSMENT AND PLAN: 1. Acute hypoxemic respiratory failure due to pulmonary edema and possible pneumonia. The patient had thoracentesis of chest on the left side, and 1 liter of blood- tinged fluid has been removed. The patient is requiring Ventimask at 50% FiO2. The patient requested to be sent home because he said that he is feeling good. Pulmonary is following this patient, as well as Hematology/Oncology. We will continue with the same management. At this point, I think I will wait until this patient tolerates oxygen by nasal cannula in order to send this patient home. 2. Hypotension. I think at this point, I will add fludrocortisone to his current treatment considering that this patient is having persistent low blood pressure, sometimes his heart rate 70s and 80s. 3. Sinus tachycardia. Patient has been reaching 120s and 130s, so at this point I prefer to start Cardizem every 6 hours and see how this patient does. 4. 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 Oncology following this patient. 5. Mediastinal adenopathy causing superior vena cava, stable at this moment. 6. Bilateral pleural effusion. As we mentioned before, we have done a left and right thoracentesis. X-ray shows better lung function. We will continue with the same management. 7. Leukocytosis, likely a combination of pneumonia and/or reactive, getting better. We will continue to monitor. 8. Hyponatremia, resolved. 9. Disposition. At this point, we will continue to monitor this patient here in the PVC unit, and we will monitor this patient until he is able to tolerate oxygen by nasal cannula. cc: Antonio Gonzalez MD MTDD
[2019-06-16] MEDS: CARDIZEM PO SCH ×3 (11:06→20:29)
[2019-06-16] MEDS: FLORINEF PO SCH ×2 (11:06→20:29)
[2019-06-16] MEDS: LEVAQUIN 500 MG/D5W 500 MG/100 ML IVPB IV SCH (13:44)
--- NOTE | 2019-06-16 16:31 | PROVIDER PROGRESS NOTE ---
Progress Note Dr. Hills Progress Note/Pulmonary and or critical care Subjective: The patient is lying in bed with no acute distress noted. He is on NC 5L with SaO2 93% during my encounter. He states he is feeling better. He refuses BiPAP use and states he is fine. He reports no cough or SOB and asks when he can go home. No family at the bedside. Input was appreciated from Dr. Valderrama and other teams on the case. Objective: Vital Signs: T 97.9 (no fever in last 24 hours), [place] 119, RR 19, BP 97/72 and SaO2 97% on VM 50% Physical Examination: General: Lying in bed. No acute distress noted. HEENT: Normocephalic. Atraumatic. Trachea midline. Mucosa pink and moist. Orop harynx clear. PERRL. Chest: Even and unlabored. Symmetrical excursion. Diminished breathing sounds bibasilarly. CVS: Tachycardia. S1 and S2 appreciated. Abdomen: Soft. Non-distended. Non-tender. Normoactive bowel sounds in all 4 quadrants. Extremities: BLE trace edema. No cyanosis. Clubbing noted. Neuro: A/O x 3. Answer simple questions. Follow simple commands. Labs and Radiology: Laboratory Results 06/16/19 06/16/19 06/16/19 05:13 05:20 05:20 WBC 10.96 H RBC 2.81 L Hgb 8.7 L Hct 27.3 L MCV 97.2 MCH 31.0 MCHC 31.9 L RDW Std Deviation 21.6 H Plt Count 104 L MPV 10.3 Immature Gran % (Auto) 0.3 Neut % (Auto) 88.4 H Lymph % (Auto) 7.2 L Briscoe % (Auto) 3.1 Eos % (Auto) 0.7 Baso % (Auto) 0.3 Immature Gran # (Auto) 0.03 Neut # (Auto) 9.69 H Lymph # (Auto) 0.79 L Briscoe # (Auto) 0.34 Eos # (Auto) 0.08 Baso # (Auto) 0.03 Specimen Type ARTERIAL Sample Site R RADIAL pH 7.41 pCO2 58 H* pO2 88 HCO3 33.7 H Base Excess 11.2 H Oxyhemoglobin 96.4 ABG O2 Sat (Calculated) 8.0 L ABG O2 Saturation 99.0 ABG Carboxyhemoglobin 2.10 ABG Methemoglobin 0.6 Rishi Test YES A-a O2 Difference 196.0 Total Hemoglobin 5.8 L Lactate 0.60 Blood Gas Modality VENTIMASK FiO2 % 50.0 Sodium 137 Potassium 4.3 Chloride 95 L Carbon Dioxide 33 Anion Gap 9 BUN 13 Creatinine 0.6 L Estimated GFR/1.73 m2 > 60 BUN/Creatinine Ratio 22 Glucose 90 Calculated Osmolality 273 Calcium 8.6 L Assessment: Acute hypoxemic respiratory failure. Slowly improving. Acute hypercapnic respiratory failure. CO2 retention worsened. Patient did not use BiPAP last night. Small-cell lung cancer metastatic to mediastinum and brain. 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 Pulmonary edema with bilateral pleural effusions. s/p right thoracentesis on 06/12/19 with 500 ml fluid aspirated and left thoracentesis on 06/15/19 with 1000 ml fluid aspirated. CXR this morning shows decrease in size of left pleural effusion with better aeration of the left lung base, stable chest, otherwise. Witnessed sleep apnea. Shock. No pressor required. Plan: We again stress the importance of BiPAP compliance to the patient. Supplemental oxygen as needed with BiPAP at bedtime as tolerated. We titrated supplemental oxygen and BiPAP settings to the patients needs per clinical protocols. We will keep monitoring patients response closely. Continue prophylactic antibiotic Levaquin. Continue light diuresis as tolerated. Continue bronchodilators. Continue GI and DVT prophylaxis.
[2019-06-17] MEDS: CARDIZEM PO SCH ×2 (02:41→08:15)
[2019-06-17] MEDS: DUONEB (A & A) INH SCH ×3 (03:40→11:41)
[2019-06-17 05:24] LABS: ALLEN TEST YES; BE 12.5 mmoll (-3.0-3.0); BLOOD TYPE ARTERIAL; HCO3-(ACT) 34.7 mmoll (20.0-26.0); METHB 1.4 % (0.0-1.5); O2(CT) 10.4 mL/dL (15.0-23.0); O2HB 95.7 % (95.0-99.0); PCO2(98.6) 46 mmHg (35-45); PO2(98.6) 99 mmHg (60-100); SAMPLE BLOOD; SAO2 99.2 % (95.0-100.0); THB 7.6 g/dL (11.5-17.4); pH(98.6) 7.51 (7.35-7.45)
[2019-06-17 05:25] LABS: MODALITY CANNULA
[2019-06-17 06:13] LABS: BASO# 0.04 X1000 (0.0-0.2); BASO% 0.7 % (0.0-0.8); HEMATOCRIT 26.5 % (42.0-52.0); HEMOGLOBIN 8.5 g/dL (14.0-18.0); LYMPH# 0.63 X1000 (1.2-3.4); LYMPH% 11.4 % (20.5-51.1); MCHC 32.1 g/dL (33-37); MCV 96.7 FL (81-99); MONO# 0.54 X1000 (0.11-0.59); MONO% 9.7 % (1.7-9.3); MPV 10.8 FL (7.4-10.4); PLT 88 X1000 (130-400); RBC 2.74 XMIL (4.7-6.1); RDW 21.4 % (11.5-14.5); WBC 5.55 X1000 (4.8-10.8)
[2019-06-17 06:37] LABS: AGAP 7; ALBUMIN 3.1 g/dL (3.5-5.0); BUN 13 mg/dL (8-22); CALCIUM 8.5 mg/dL (8.8-10.2); CHLORIDE 92 mmol/L (98-107); COSMO 268; CREATININE 0.6 mg/dL (0.7-1.2); ESTIMATED GFR > 60; GLUCOSE 94 mg/dL (70-104); POTASSIUM 3.8 mmol/L (3.5-5.1); SODIUM 134 mmol/L (136-145); TCO2 35 mmol/L (25-35)
[2019-06-17 07:12] LABS: LYMPHS 20 % (21-51); MONO 2 % (1-9); SEGS 78 % (42-75)
[2019-06-17 07:46] VITALS: BP 89/70
[2019-06-17] MEDS: LASIX PO SCH (08:15)
[2019-06-17] MEDS: PROTONIX [NONFORMULARY] PO SCH (08:15)
[2019-06-17] MEDS: FLORINEF PO SCH (08:15)
--- NOTE | 2019-06-17 11:47 | DISCHARGE SUMMARY ---
ADMISSION DATE: 06/11/2019 DISCHARGE DATE: 06/17/2019 PRIMARY CARE PHYSICIAN: Piyush Rico MD ADMISSION DIAGNOSES: 1. Acute hypoxemic respiratory failure. 2. Small cell lung cancer adenocarcinoma of the lungs with mediastinal and brain involvement. 3. Mediastinal adenopathy causing superior vena cava. 4. Left pleural effusion. 5. Right pleural effusion, moderate size. 6. Leukocytosis. 7. Hyponatremia. DISCHARGE DIAGNOSES: 1. An acute hypoxic respiratory failure due to pulmonary edema and possible pneumonia, improved status post thoracentesis of left side of chest. 2. Hypotension. 3. Sinus tachycardia. 4. Metastatic small cell lung cancer with mediastinal and brain involvement. 5. Mediastinal adenopathy causing superior vena cava. 6. Bilateral pleural effusions with a left and right thoracentesis with improved lung function. 7. Leukocytosis, improved. 8. Hyponatremia, resolved. SUMMARY OF FINDINGS: This is a 48-year-old male with a history of lung cancer with brain METs, receiving chemotherapy via Dr. Macias, who presented after having low O2 saturations while he was receiving chemotherapy, as low as 84% on room air. Stated he had felt fatigued, generalized weakness, a chronic dry cough that had been present before his cancer diagnosis. When he arrived, he was saturating 94% on room air, was placed on 2 liters via nasal cannula. He was scheduled on 06/12/2019 for a right-sided thoracentesis, and 500 mL was successfully drained from the right side. Pulmonology was consulted. Hematology was consulted. On 06/15/2019, he had a left ultrasound-guided thoracentesis removing 1 liter of blood tinged fluid by syringe pump technique. He has been on IV antibiotics, currently saturating 93% on 5 liters via nasal cannula. White blood cell count has returned to normal today, and it is now felt that he can safely be discharged home with home O2. HOME MEDICATIONS: Will include DuoNeb every 4 hours, Florinef 0.1 mg p.o. b.i.d., Lasix 20 mg p.o. daily, [place] 10 one p.o. every 4 hours p.r.n., Protonix 40 mg p.o. daily, Cardizem CD 180 mg p.o. daily; Levaquin 750 mg p.o. daily, number 10 with no refills; potassium 20 mEq p.o. daily. FOLLOWUP: He will follow up with his primary care physician and with his oncologist and call their office to schedule those appointments. All discharge instructions have been reviewed and verbalized understanding. TIME SPENT: A 35 minute discharge. Dictated by MYESHA Durbin for Antonio Gonzalez MD Addendum: Patient seen and examined by myself. Agree with MYESHA note. It reflects my assessment and plan. Patient is being discharged from hospital in stable condition. Will be seen by Oncologist in a week. cc: MYESHA Durbin MD Edwin K. Matthews, MD MTDD
== END 2019-06-17 11:59 | disposition home or self-care (01) | DRG 871 ==
LOC: SUPCPDRO → ED 12:49 → SUATTDRO 20:08 → 2N 20:08
PROVIDERS: ATTEND Internal Medicine